=== PATIENT | female | born 1960 | race Caucasian/White ===

== ENCOUNTER 2017-06-17 06:30 | Inpatient (IN) | payer MEDICARE ==
[~2017-06-17 06:30] MED LIST: Acetaminophen 500 MG Tab PO SCH; Famotidine 20 MG/2 ML SDV IVPUSH SCH; Ketorolac 30 MG/ML SDV IVPUSH SCH; Ropivacaine 49.25 ML, Ketorolac 30 MG, EPINEPHrine 0.5 MG, cloNIDine 80 MCG in Sodium C... INJECT ONE; Scopolamine 1.5 MG Transdermal Patch TRDERM SCH; ceFAZolin 2 GM in Premix Bag 1 BAG IV SCH; oxyCODONE ER 20 MG TAB.ER PO SCH
[2017-06-17] MEDS ORDERED: Famotidine 20 MG/2 ML SDV ONE (06:40)
[2017-06-17] MEDS ORDERED: Ketorolac 30 MG/ML SDV ONE ×2 (06:52→07:34)
[2017-06-17] MEDS ORDERED: Scopolamine 1.5 MG Transdermal Patch ONE (06:52)
[2017-06-17] MEDS ORDERED: Acetaminophen 500 MG Tab ONE (06:52)
[2017-06-17] MEDS: Lactated Ringers 1,000 ML IV SCH ×2 (07:18→18:34)
[2017-06-17] MEDS ORDERED: Lidocaine 2% 5 ML SDV ONE (07:21)
[2017-06-17] MEDS ORDERED: Propofol 200 MG/20 ML SDV ONE ×2 (07:22→09:18)
[2017-06-17] MEDS ORDERED: Midazolam 1 MG/ML 2 ML SDV ONE (07:22)
[2017-06-17] MEDS ORDERED: fentaNYL 100 MCG/2 ML SDV ONE ×2 (07:22→08:40)
[2017-06-17] MEDS ORDERED: Ondansetron 4 MG/2 ML SDV ONE (07:25)
[2017-06-17] MEDS ORDERED: ePHEDrine 50 MG/ML SDV ONE ×2 (07:25→07:36)
--- NOTE | 2017-06-17 08:16 | PCM.PREANE ---
Preanesthetic Assessment - Procedure Proposed Procedure: right total knee replacement - Anesthesia/Transfusion/Family Hx Other Type of Anesthesia Reaction Comment: "I have up woke up confused" Family History of Anesthesia Reaction: No Transfusion History: Prior Transfusion Without Reaction Intubation History: Unknown - Review of Systems General: No Symptoms Pulmonary: No Symptoms Cardiovascular: Other (HTN and elevated cholesterol) Gastrointestinal: No Symptoms Neurological: Difficulty Walking (due to knee pain), Other (back pain; epidural meds in past) Other: Reports: Diabetes (new onset, on metformin) - Physical Assessment NPO Status Date: 06/16/17 NPO Status Time: 20:30 O2 Sat by Pulse Oximetry: 95 Respiratory Rate: 16 Vital Signs: Last Vital Signs Temp 97.9 F 06/17/17 06:40 Pulse 98 06/17/17 06:40 Resp 16 06/17/17 06:40 BP 153/86 H 06/17/17 06:40 Pulse Ox 95 06/17/17 06:40 Height: 5 ft 8 in Weight: 190 lb ASA Class: 3 Mental Status: Alert & Oriented x3 Airway Class: Mallampati = 1 Dentition: Reports: Normal Dentition Thyro-Mental Finger Breadths: 3 Mouth Opening Finger Breadths: 3 ROM/Head Extension: Full Lungs: Clear to Auscultation, Normal Respiratory Effort Cardiovascular: Regular Rate, Regular Rhythm, No Murmurs - Lab Values: Laboratory Last Values POC Glucose 96 mg/dL (60-110) 06/17/17 07:18 - Allergies Allergies/Adverse Reactions: Allergies Allergy/AdvReac Type Severity Reaction Status Date / Time celecoxib [From Celebrex] Allergy Muscle Verified 06/17/17 07:57 Aches duloxetine [From Cymbalta] Allergy Muscle Verified 06/17/17 07:57 Aches pumpkin Allergy Nausea and Verified 06/17/17 07:57 Vomiting Sulfa (Sulfonamide Allergy Rash Verified 06/17/17 07:57 Antibiotics) tramadol [From Ultram] Allergy Hyperactivi Verified 06/17/17 07:57 ty bee stings Allergy Anaphylactic Uncoded 06/17/17 07:57 Shock gold Allergy Redness Uncoded 06/17/17 07:57 - Blood Blood Available: Yes Product(s) Available: PRBC - Anesthesia Plan Pre-Op Medication Ordered: Other (per surgeon) - Acknowledgements Anesthesia Type Planned: General Anesthesia, Spinal Pt an Appropriate Candidate for the Planned Anesthesia: Yes Alternatives and Risks of Anesthesia Discussed w Pt/Guardian: Yes Pt/Guardian Understands and Agrees with Anesthesia Plan: Yes PreAnesthesia Questionnaire HEENT History: Reports: Allergic Rhinitis, Other (See Below) Other HEENT History: wears glasses Cardiovascular History: Reports: High Cholesterol, Hypertension Gastrointestinal History: Reports: GERD, Irritable Bowel Syndrome Other Gastrointestinal History: hx gastric ulcer, tested positive for hep C Genitourinary History: Reports: Renal Calculus 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: Musculoskeletal History: Reports: Back Pain, Chronic, Fracture, Osteoarthritis Neurological History: Reports: Concussion Psychiatric History: Reports: Anxiety, Depression Endocrine/Metabolic History: Reports: Diabetes, Type II Hematologic History: Reports: Blood Transfusion(s) - Infectious Disease History Infectious Disease History: Reports: Hepatitis A, Hepatitis C - Past Surgical History Head Surgeries/Procedures: Reports: None GI Surgical History: Reports: Cholecystectomy Female Surgical History: Reports: Hysterectomy Musculoskeletal Surgical History: Reports: Knee Replacement, ORIF Other Musculoskeletal Surgeries/Procedures:: ORIF fx left femur, left TKA - SUBSTANCE USE Smoking Status *Q: Never Smoker Recreational Drug Use History: No - HOME MEDS Home Medications: Home Meds Aspirin [[place] Aspirin] 81 mg PO DAILY 06/14/17 [History] Cetirizine HCl [Zyrtec] 10 mg PO DAILY 06/14/17 [History] ClonazePAM [KlonoPIN] 1 mg PO BID 06/14/17 [History] EPINEPHrine [Epipen] 1 injection SUBCUT ASDIRECTED PRN 06/14/17 [History] Escitalopram Oxalate 20 mg PO DAILY 06/14/17 [History] Ferrous Sulfate [Iron] 325 mg PO ASDIRECTED 06/14/17 [History] Hydrochlorothiazide 12.5 mg PO DAILY 06/14/17 [History] L.acidoph,Paracasei, B.lactis [Probiotic] 1 tab PO DAILY 06/14/17 [History] Lavender Oil [Lavender Fragrance Oil] 1 applic TOP ASDIRECTED 06/14/17 [History] Lisinopril 40 mg PO DAILY 06/14/17 [History] Meloxicam 15 mg PO DAILY 06/14/17 [History] Metoprolol Succinate 50 mg PO ASDIRECTED 06/14/17 [History] Mv-Mn/Folic Acid/Calcium/Vit K [Women's 50 Plus Daily Formula] 1 tab PO DAILY [History] Potassium Chloride 10 meq PO DAILY 06/14/17 [History] Pravastatin Sodium [Pravachol] 40 mg PO BEDTIME 06/14/17 [History] Turmeric/Turmeric Ext/Pepr Ext [Turmeric Complex 500 mg Cap] 1 tab PO BID [History] metFORMIN HCl [Metformin HCl] 500 mg PO BID 06/14/17 [History] - CURRENT (IN HOUSE) MEDS Current Meds: Current Medications Acetaminophen (Tylenol Extra Strength) 1,000 mg PO ONARRIVE ALICIA Last Admin: 06/17/17 07:28 Dose: 1,000 mg Famotidine (Pepcid) 40 mg IVPUSH ONARRIVE ALICIA Last Admin: 06/17/17 07:31 Dose: 40 mg Cefazolin Sodium/Dextrose 2 gm (/ Premix) 50 mls @ 100 mls/hr IV ONCALL ALICIA Lactated Ringer's (Ringers, Lactated) 1,000 mls @ 100 mls/hr IV ASDIRECTED ALICIA Last Admin: 06/17/17 07:18 Dose: 100 mls/hr Ketorolac Tromethamine (Toradol) 30 mg IVPUSH ONARRIVE ALICIA Last Admin: 06/17/17 07:30 Dose: 30 mg Oxycodone HCl (Oxycontin) 20 mg PO ONARRIVE ALICIA Scopolamine (Transderm-Scop) 1.5 mg TRDERM ONARRIVE ALICIA Last Admin: 06/17/17 07:27 Dose: 1.5 mg Tranexamic Acid (Cyklokapron) 4,000 mg IV [facility] Discontinued Medications Acetaminophen (Tylenol Extra Strength) Confirm Administered Dose 1,000 mg .ROUTE .STK-MED ONE Stop: 06/17/17 06:53 Ephedrine Sulfate (Ephedrine Sulfate) Confirm Administered Dose 50 mg .ROUTE .STK-MED ONE Stop: 06/17/17 07:26 Ephedrine Sulfate (Ephedrine Sulfate) Confirm Administered Dose 50 mg .ROUTE .STK-MED ONE Stop: 06/17/17 07:37 Famotidine (Pepcid) Confirm Administered Dose 40 mg .ROUTE .STK-MED ONE Stop: 06/17/17 06:41 Last Admin: 06/17/17 07:41 Dose: Not Given Fentanyl (Sublimaze) Confirm Administered Dose 100 mcg .ROUTE .STK-MED ONE Stop: 06/17/17 07:23 Ropivacaine 49.25 ml/Ketorolac Tromethamine 30 mg/Epinephrine HCl 0.5 mg/ Clonidine HCl 80 mcg/ Sodium Chloride 100 mls @ 50 mls/min INJECT ONETIME ONE Stop: 06/17/17 06:01 Ketorolac Tromethamine (Toradol) Confirm Administered Dose 30 mg .ROUTE .STK- MED ONE Stop: 06/17/17 06:53 Ketorolac Tromethamine (Toradol) Confirm Administered Dose 30 mg .ROUTE .STK- MED ONE Stop: 06/17/17 07:35 Lidocaine (Xylocaine-Mpf 2%) Confirm Administered Dose 10 ml .ROUTE .STK-MED ONE Stop: 06/17/17 07:22 Midazolam HCl (Versed 1 Mg/Ml) Confirm Administered Dose 2 mg .ROUTE .STK-MED ONE Stop: 06/17/17 07:23 Ondansetron HCl (Zofran) Confirm Administered Dose 4 mg .ROUTE .STK-MED ONE Stop: 06/17/17 07:26 Propofol (Diprivan 20 Ml) Confirm Administered Dose 400 mg .ROUTE .STK-MED ONE Stop: 06/17/17 07:23 Scopolamine (Transderm-Scop) Confirm Administered Dose 1.5 mg .ROUTE .STK-MED ONE Stop: 06/17/17 06:53 Tranexamic Acid (Cyklokapron) Confirm Administered Dose 4,000 mg .ROUTE .STK- MED ONE Stop: 06/17/17 07:21
[2017-06-17] MEDS ORDERED: fentaNYL 100 MCG/2 ML SDV IVPUSH PRN (09:05)
[2017-06-17] MEDS ORDERED: HYDROmorphone 2 MG/ML Syringe IVPUSH ONE (09:05)
[2017-06-17] MEDS ORDERED: Bisacodyl 10 MG Supp RECTAL PRN (10:07)
[2017-06-17] MEDS ORDERED: Aluminum Hydroxide/Magnesium Hydroxide/Simethicone Susp 30 ML Cup PO PRN (10:07)
[2017-06-17] MEDS ORDERED: Ondansetron 4 MG/2 ML SDV IV PRN (10:07)
[2017-06-17] MEDS ORDERED: diphenhydrAMINE 25 MG Cap PO PRN (10:07)
--- NOTE | 2017-06-17 10:10 | PCM.OPNOTE ---
- General Post-Op/Procedure Note Date of Surgery/Procedure: 06/17/17 Operative Procedure(s): R TKA Post-Op Diagnosis: DJD R knee Anesthesia Technique: General LMA, Spinal Primary Surgeon: Lenka Vargas Patient Account Representative: Luna Wilkerson in mLs: 50 Condition: Good Free Text/Narrative:: tt=54 min #[id number] Intake & Output 06/16/17 06/17/17 06/17/17 22:59 06:59 14:59 Output Total 350 Balance -350
[2017-06-17] MEDS ORDERED: Acetaminophen 500 MG Tab PO SCH (10:15)
--- NOTE | 2017-06-17 10:41 | OR ---
SURGEON: Lenka Vargas MD DATE OF PROCEDURE: 06/17/2017 PREOPERATIVE DIAGNOSIS: Degenerative joint disease, right knee, tricompartmental. POSTOPERATIVE DIAGNOSIS: Degenerative joint disease, right knee, tricompartmental. PROCEDURES: Right total knee arthroplasty using patient-specific instrumentation. BOILER/CHILLER OPERATOR: Luna Wilkerson PA-C. ANESTHESIA: Spinal and general. ESTIMATED BLOOD LOSS: 50 mL. TOURNIQUET TIME: 54 minutes. COMPLICATIONS: None. DVT PROPHYLAXIS: PAS boot and VÍCTOR hose to the nonoperative leg. IMPLANTS USED: Maggie NexGen femoral component size E (LPS), tibial component size 5, 14 mm all- polyethylene articular surface, and 35 mm all-polyethylene patella. FINDINGS: Showed severe tricompartmental degenerative changes, which were most severe along the medial compartment. She had complete eburnation of the bone along the medial femoral condyle as well as the medial tibial plateau. Osteophyte formation was noted in all 3 compartments. No significant synovitis was noted. BRIEF HISTORY: Teresita is a 56-year-old female, who has had complaint of progressive right knee pain. She had previously undergone a left total knee arthroplasty at an outlying facility, which was complicated by a periprosthetic fracture approximately 2 weeks after her surgery. She went on to heal the fracture well. She has continued to have pain in her right knee. She had failed conservative treatment. Due to her lack of response to conservative treatment, I did recommend surgical intervention. The risks and goals of procedure were discussed with the patient and were documented preoperatively. She agreed to proceed. DESCRIPTION OF PROCEDURE: The patient was properly identified and brought to the operating room. The patient was transferred from the operating room cart and placed on the operating room table. Spinal anesthesia was administered by the anesthesia team. After adequate sedation was achieved, a well-padded tourniquet was applied to the lower extremity. A Bennett catheter was then placed. The lower extremity was then prepped in standard fashion using ChloraPrep solution. It was then sterilely draped. A time-out was performed to ensure correct site and procedure. Preoperative antibiotics were given along with one gram of tranexamic acid IV. The surgical site had been marked preoperatively. An Esmarch was used to exsanguinate the lower extremity and the tourniquet was inflated. An incision was made centered over the anterior aspect of the knee. The subcutaneous tissues were dissected down to the level of the fascia. A medial parapatellar approach was made. A partial medial release was also performed. The knee was then brought into extension and a portion of the infrapatellar fat pad was excised. The knee was then brought into flexion. The femoral patient specific cutting block was placed. This fit anatomically. The pins were then placed. The 0 degree distal femoral cutting guide was placed over the distal femur pins. The femur was then resected using an oscillating saw. The pins were then removed and were placed into the previously placed distal drill holes in the femoral condyles. Both Eagle's and the epicondylar axis were marked with electric cautery. The cutting block was then placed. This was pinned into position in a slightly lateral and externally rotated position. This was then secured. The resection guide was used to check to make sure that the anterior femoral cortex would not be notched. The anterior condylar cut was then made. No notching of the femur was noted. This was followed by the posterior condylar, posterior chamfer, and anterior chamfer cuts. The narrow reciprocating saw was then used to cut the base of the trochlear recess and score the edges. The finishing guide was then removed and the trochlear recess cuts and remaining bone cuts were finished. The notch cutting block was then placed into position and the notch cut was made without difficulty using the reciprocating saw. This was then removed. The notch block that had been cut along with a portion of the cruciate ligaments were also resected. We then turned our attention to the tibia. The posterior cruciate ligament retractor was used to bring the tibial surface anteriorly. The patient specific tibial block was then placed. This fit anatomically. It was pinned into position. The block was then removed. The 0 degree proximal tibia cutting guide was then placed over the guide pin. This was secured with a Michela clamp. The resection depth was checked using the resection guide. A proximal tibia cut was then made using an oscillating saw. Care was taken to protect the patellar tendon. The proximal tibia bone was then removed. The remainder of the medial and lateral meniscus were also excised. Care was taken to protect the popliteus tendon. The proximal tibia was then sized. The remainder of the osteophytes along the proximal tibia were also resected. The distal femur was elevated to expose the posterior knee. The posterior capsule was stripped off the distal femur using a curved osteotome. The posterior osteophytes were also excised. The posterior capsule, along with the medial and lateral gutters, were then injected with the standard, preoperatively prepared, mixture consisting of clonidine, epinephrine, ropivacaine, Toradol, and saline, unless any allergies were noted preoperatively. The femoral trial was then placed. This was followed by the tibial component with a size 10 trial polyethylene. The knee was brought into full extension. Stability to varus and valgus stress was checked in extension and in flexion. There appeared to be good range of motion and stability. The knee was then brought into full extension. The patella was everted. The patella was resected to a thickness of 15 millimeters. It was then sized. Once the appropriate size was determined, the patella was prepared by placing the patella button in a slightly superior and medial position. The patella button trial was then placed and the knee was again taken through a range of motion. There was excellent patellar tracking using the no-touch technique. Alignment was checked with a drop pietro. The trial components were then removed. The knee was brought into full flexion and the tibia was prepared in a standard fashion placing the tibial plate in slight external rotation with the center of the prosthesis lined up with the medial aspect of the tibial tubercle. The wound was then copiously irrigated with Pulsavac solution to remove any bony debris. The bone ends were then suctioned dry. Cement was prepared in the usual fashion on the back table. The cement was then placed onto the proximal tibia and the tibial component was placed without difficulty. This was malleted into position. Excess cement was cleared. The femoral component was cemented in a similar manner. A trial polyethylene was then placed and the knee was brought into full extension. An axial load was applied. The patella button was then cemented into place and a patella clamp was placed to hold pressure. The cement was allowed to cure. The wound was again copiously irrigated with saline solution using a Pulsavac coverstitch binder. Following this 1 g of tranexamic acid was applied to the wound topically. After the cement had adequately hardened, the patella clamp was released. The knee was again taken through a range of motion. It was determined at this time the correct thickness of polyethylene. The trial polyethylene insert was then removed. The knee was brought into flexion and the tibial tray was suctioned dry. Any excess cement was cleared from the tibial and femoral components. The knee was then brought into approximately 45 degrees of flexion. The tourniquet was deflated. No excess bleeding was noted from the posterior aspect of the knee. An additional gram of tranexamic acid was given IV. The previously determined sized polyethylene insert was then placed and locked into position without difficulty. The knee was again taken through a range of motion with no change in stability, either in flexion or extension. The fascia layer was closed with No. 1 Vicryl. The subcutaneous tissue was closed with 2-0 Vicryl and the skin was closed with a shade. Xeroform gauze was placed over the wound and a bulky dressing was applied. The patient was then awakened from the anesthetic and transferred back to the operating cart. The patient was brought to recovery room in stable condition. All needle and sponge counts were correct. LEVON HARRIS /[id number]
--- NOTE | 2017-06-17 10:41 | PCM.POSTAN ---
POST ANESTHESIA ASSESSMENT - MENTAL STATUS Mental Status: Alert, Oriented - RESPIRATORY Respiratory Status: Respiratory Rate WNL, Airway Patent, O2 Saturation Stable - CARDIOVASCULAR CV Status: Pulse Rate WNL, Blood Pressure Stable - GASTROINTESTINAL GI Status: No Symptoms - PAIN Pain Score: 0 (Spinal effect still present) - POST OP HYDRATION Hydration Status: Adequate & Stable
[2017-06-17] MEDS: Acetaminophen 500 MG Tab PO SCH ×2 (11:31→17:01)
[2017-06-17] MEDS: HYDROmorphone 2 MG/ML Syringe IVPUSH PRN ×3 (12:29→22:06)
--- NOTE | 2017-06-17 13:28 | CR ---
EXAMINATION: Right knee HISTORY: Arthroplasty COMPARISON: 05/20/2017 TECHNIQUE: 2 views FINDINGS/IMPRESSION: Total knee hardware is demonstrated in good position and alignment. Operative so ft tissue changes are noted.
[2017-06-17] MEDS: oxyCODONE 5 MG Tab PO PRN ×2 (14:24→23:35)
[2017-06-17] MEDS: ceFAZolin 2 GM in Premix Bag 1 BAG IV SCH ×2 (16:58→22:15)
--- NOTE | 2017-06-17 18:05 | PCM.CONS ---
H&P History of Present Illness - General Date of Service: 06/17/17 Admit Problem/Dx: Admission Diagnosis/Problem Admission Diagnosis/Problem Replacement of total knee joint - History of Present Illness Initial Comments - Free Text/Narative: DR Hussain Vargas kindly requested that I consult on the care of this woman who underwent total knee replacement today. She has a history of HTN and DM. She does not take insulin. She has no recent chest pain or dyspnea. - Related Data Allergies/Adverse Reactions: Allergies Allergy/AdvReac Type Severity Reaction Status Date / Time celecoxib [From Celebrex] Allergy Muscle Verified 06/17/17 07:57 Aches duloxetine [From Cymbalta] Allergy Muscle Verified 06/17/17 07:57 Aches pumpkin Allergy Nausea and Verified 06/17/17 07:57 Vomiting Sulfa (Sulfonamide Allergy Rash Verified 06/17/17 07:57 Antibiotics) tramadol [From Ultram] Allergy Hyperactivi Verified 06/17/17 07:57 ty bee stings Allergy Anaphylactic Uncoded 06/17/17 07:57 Shock gold Allergy Redness Uncoded 06/17/17 07:57 Home Medications: Home Meds Aspirin [[place] Aspirin] 81 mg PO DAILY 06/14/17 [History] Cetirizine HCl [Zyrtec] 10 mg PO DAILY 06/14/17 [History] ClonazePAM [KlonoPIN] 1 mg PO BID 06/14/17 [History] EPINEPHrine [Epipen] 1 injection SUBCUT ASDIRECTED PRN 06/14/17 [History] Escitalopram Oxalate 20 mg PO DAILY 06/14/17 [History] Ferrous Sulfate [Iron] 325 mg PO ASDIRECTED 06/14/17 [History] Hydrochlorothiazide 12.5 mg PO DAILY 06/14/17 [History] L.acidoph,Paracasei, B.lactis [Probiotic] 1 tab PO DAILY 06/14/17 [History] Lavender Oil [Lavender Fragrance Oil] 1 applic TOP ASDIRECTED 06/14/17 [History] Lisinopril 40 mg PO DAILY 06/14/17 [History] Meloxicam 15 mg PO DAILY 06/14/17 [History] Metoprolol Succinate 50 mg PO ASDIRECTED 06/14/17 [History] Mv-Mn/Folic Acid/Calcium/Vit K [Women's 50 Plus Daily Formula] 1 tab PO DAILY [History] Potassium Chloride 10 meq PO DAILY 06/14/17 [History] Pravastatin Sodium [Pravachol] 40 mg PO BEDTIME 06/14/17 [History] Turmeric/Turmeric Ext/Pepr Ext [Turmeric Complex 500 mg Cap] 1 tab PO BID [History] metFORMIN HCl [Metformin HCl] 500 mg PO BID 06/14/17 [History] Past Medical History HEENT History: Reports: Allergic Rhinitis, Other (See Below) Other HEENT History: wears glasses Cardiovascular History: Reports: High Cholesterol, Hypertension. 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 Denies: CVA Psychiatric History: Reports: Anxiety, Depression Endocrine/Metabolic History: Reports: Diabetes, Type II Hematologic History: Reports: Blood Transfusion(s) - Infectious Disease History Infectious Disease History: Reports: Hepatitis A, Hepatitis C - Past Surgical History Head Surgeries/Procedures: Reports: None GI Surgical History: Reports: Cholecystectomy Female Surgical History: Reports: Hysterectomy Musculoskeletal Surgical History: Reports: Knee Replacement, ORIF Other Musculoskeletal Surgeries/Procedures:: ORIF fx left femur, left TKA Social & Family History - Tobacco Use Smoking Status *Q: Never Smoker - Caffeine Use Caffeine Use: Reports: Soda Caffeine Use Comment: Used rarely. - Recreational Drug Use Recreational Drug Use: No H&P Review of Systems - Review of Systems: Review Of Systems: See Below General: Denies: Fever HEENT: Denies: Sore Throat Pulmonary: Denies: Shortness of Breath, Cough, Sputum Cardiovascular: Denies: Chest Pain Gastrointestinal: Denies: Abdominal Pain, Black Stool, Bloody Stool, Hematemesis , Hematochezia, Melena, Nausea, Stool Incontinence Genitourinary: Denies: Dysuria, Frequency, Hematuria Skin: Denies: Cyanosis Exam - Exam Exam: See Below - Vital Signs Vital Signs: Last Vital Signs Temp 98.2 F 06/17/17 14:04 Pulse 83 09/18/17 15:05 Resp 16 06/17/17 11:41 BP 112/56 L 06/17/17 15:05 Pulse Ox 92 L 06/17/17 15:05 Weight: 86.183 kg - Exam General: Alert, Oriented, Cooperative HEENT: EOMI Neck: Supple, Trachea Midline Lungs: Clear to Auscultation, Normal Respiratory Effort Cardiovascular: Regular Rate, Regular Rhythm GI/Abdominal Exam: Non-Tender Neurological: Cranial Nerves Intact, Normal Speech - Patient Data Lab Results Last 24 hrs: Laboratory Results - last 24 hr 06/17/17 06/17/17 06/17/17 Range/Units 07:18 07:18 16:57 POC Glucose 96 132 H (60-110) mg/dL Blood Type O NEGATIVE Antibody Screen NEGATIVE Consult PN Assessment/Plan Procedures: Procedures CHEST X-RAY 2VW FRONTAL&LATL (06/04/17) COMPLETE CBC W/AUTO DIFF WBC (06/04/17) COMPREHEN METABOLIC PANEL (05/15/17) GLYCOSYLATED HEMOGLOBIN TEST (06/04/17) LIPID PANEL (05/15/17) METABOLIC PANEL TOTAL CA (06/04/17) MRI JNT OF LWR EXTRE W/O DYE (05/20/17) PROTHROMBIN TIME (06/04/17) ROUTINE VENIPUNCTURE (06/04/17) URINALYSIS AUTO W/SCOPE (06/04/17) X-RAY EXAM KNEE 4 OR MORE (05/07/17) (1) Total knee replacement status SNOMED Code(s): 1922302466989, 614631559, 4553312255749 Code(s): Z96.659 - PRESENCE OF UNSPECIFIED ARTIFICIAL KNEE JOINT Current Visit: Yes (2) History of chronic hypertension SNOMED Code(s): 804717470 Code(s): Z86.79 - PERSONAL HISTORY OF OTHER DISEASES OF THE CIRCULATORY SYSTEM Current Visit: Yes (3) Diabetes mellitus SNOMED Code(s): 11683260 Code(s): E11.9 - TYPE 2 DIABETES MELLITUS WITHOUT COMPLICATIONS Current Visit: Yes Problem List Initiated/Reviewed/Updated: Yes My Orders Last 24 Hours: My Active Orders 06/17/17 21:00 Pravastatin [Pravachol] 40 mg PO BEDTIME 06/18/17 09:00 Escitalopram Oxalate 20 mg PO DAILY Plan: will follow patient monitor blood pressure and glucose levels hold metformin for now hold antihypertensives for now but likely restart them tomorrow. Damian Gomez MD
[2017-06-17] MEDS: oxyCODONE ER 20 MG TAB.ER PO SCH (20:51)
[2017-06-17] MEDS ORDERED: Pravastatin 40 MG Tab PO SCH (21:00)
[2017-06-17] MEDS: Docusate Sodium 100 MG Cap PO SCH (21:06)
[2017-06-18] MEDS: HYDROmorphone 2 MG/ML Syringe IVPUSH PRN (01:20)
[2017-06-18] MEDS: oxyCODONE 5 MG Tab PO PRN ×3 (03:44→16:21)
[2017-06-18] MEDS: Lactated Ringers 1,000 ML IV SCH (04:49)
[2017-06-18 05:51] LABS: CHLORIDE,CL 102 mmol/L (98-110); SODIUM,NA 136 mmol/L (136-146)
[2017-06-18] MEDS: Acetaminophen 500 MG Tab PO SCH ×3 (06:00→11:43)
--- NOTE | 2017-06-18 08:13 | PCM48HPAN ---
Post Anesthesia Note - EVALUATION WITHIN 48HRS OF ANESTHETIC Vital Signs in Normal Range: Yes Patient Participated in Evaluation: Yes Respiratory Function Stable: Yes Airway Patent: Yes Cardiovascular Function Stable: Yes Hydration Status Stable: Yes Pain Control Satisfactory: Yes Nausea and Vomiting Control Satisfactory: Yes Mental Status Recovered: Yes
[2017-06-18] MEDS ORDERED: Sodium Chloride 0.9% 10 ML Syringe FLUSH PRN (08:49)
[2017-06-18] MEDS ORDERED: Sodium Chloride 0.9% 2.5 ML Syringe FLUSH PRN (08:49)
--- NOTE | 2017-06-18 08:52 | PCM.SURGPN ---
<Luna Wilkerson - Last Filed: 06/18/17 08:50> - General Info Date of Service: 06/18/17 Date of Surgery/Procedure: 06/17/17 POD#: 1 Functional Status: Reports: Pain Controlled, Tolerating Diet, Ambulating - Review of Systems General: Reports: No Symptoms Pulmonary: Reports: No Symptoms Cardiovascular: Reports: No Symptoms Gastrointestinal: Reports: No Symptoms Genitourinary: Reports: No Symptoms Musculoskeletal: Reports: Leg Pain, Joint Pain, Joint Swelling Neurological: Reports: No Symptoms Psychiatric: Reports: No Symptoms - Patient Data Vitals - Most Recent: Last Vital Signs Temp 36.4 C 06/18/17 07:53 Pulse 90 06/18/17 07:53 Resp 18 06/18/17 07:53 BP 125/63 06/18/17 07:53 Pulse Ox 97 06/18/17 07:53 Weight - Most Recent: 86.183 kg I&O - Last 24 Hours: Intake & Output 06/17/17 06/18/17 06/18/17 22:59 06:59 14:59 Intake Total 1521 1350 Output Total 275 750 Balance 1246 600 Lab Results Last 24 Hrs: Laboratory Results - last 24 hr 06/17/17 06/17/17 06/18/17 Range/Units 16:57 21:22 05:00 WBC 8.52 (4.0-11.0) K/uL RBC 3.29 L (4.30-5.90) M/uL Hgb 9.7 L (12.0-16.0) g/dL Hct 29.5 L (36.0-46.0) % MCV 89.7 (80.0-98.0) fL MCH 29.5 (27.0-32.0) pg MCHC 32.9 (31.0-37.0) g/dL RDW Std Deviation 45.8 (28.0-62.0) fl RDW Coeff of Bobbi 14 (11.0-15.0) % Plt Count 236 (150-400) K/uL MPV 9.00 (7.40-12.00) fL Neut % (Auto) 71.7 (48.0-80.0) % Lymph % (Auto) 15.4 L (16.0-40.0) % [place] % (Auto) 10.2 (0.0-15.0) % Eos % (Auto) 2.5 (0.0-7.0) % Baso % (Auto) 0.2 (0.0-1.5) % Neut # (Auto) 6.1 H (1.4-5.7) K/uL Lymph # (Auto) 1.3 (0.6-2.4) K/uL [place] # (Auto) 0.9 H (0.0-0.8) K/uL Eos # (Auto) 0.2 (0.0-0.7) K/uL Baso # (Auto) 0.0 (0.0-0.1) K/uL Nucleated RBC % 0.0 /100WBC Nucleated RBCs # 0 K/uL Sodium (136-146) mmol/L Potassium (3.5-5.1) mmol/L Chloride (98-110) mmol/L Carbon Dioxide (21-31) mmol/L BUN (6.0-23.0) mg/dL Creatinine (0.6-1.5) mg/dL Est Cr Clr Drug Dosing mL/min Estimated GFR (MDRD) ml/min Glucose (60-110) mg/dL POC Glucose 132 H 131 H (60-110) mg/dL Calcium (8.8-10.8) mg/dL Magnesium (1.5-2.3) mEq/L 06/18/17 06/18/17 Range/Units 05:00 06:13 WBC (4.0-11.0) K/uL RBC (4.30-5.90) M/uL Hgb (12.0-16.0) g/dL Hct (36.0-46.0) % MCV (80.0-98.0) fL MCH (27.0-32.0) pg MCHC (31.0-37.0) g/dL RDW Std Deviation (28.0-62.0) fl RDW Coeff of Bobbi (11.0-15.0) % Plt Count (150-400) K/uL MPV (7.40-12.00) fL Neut % (Auto) (48.0-80.0) % Lymph % (Auto) (16.0-40.0) % [place] % (Auto) (0.0-15.0) % Eos % (Auto) (0.0-7.0) % Baso % (Auto) (0.0-1.5) % Neut # (Auto) (1.4-5.7) K/uL Lymph # (Auto) (0.6-2.4) K/uL [place] # (Auto) (0.0-0.8) K/uL Eos # (Auto) (0.0-0.7) K/uL Baso # (Auto) (0.0-0.1) K/uL Nucleated RBC % /100WBC Nucleated RBCs # K/uL Sodium 136 (136-146) mmol/L Potassium 3.6 (3.5-5.1) mmol/L Chloride 102 (98-110) mmol/L Carbon Dioxide 24 (21-31) mmol/L BUN 14 (6.0-23.0) mg/dL Creatinine 0.7 (0.6-1.5) mg/dL Est Cr Clr Drug Dosing 89.45 mL/min Estimated GFR (MDRD) > 60.0 ml/min Glucose 131 H (60-110) mg/dL POC Glucose 119 H (60-110) mg/dL Calcium 8.7 L (8.8-10.8) mg/dL Magnesium 1.0 L (1.5-2.3) mEq/L Med Orders - Current: Current Medications Acetaminophen (Tylenol Extra Strength) 1,000 mg PO ONARRIVE [facility] Last Admin: 06/17/17 07:28 Dose: 1,000 mg Acetaminophen (Tylenol Extra Strength) 1,000 mg PO Q6H [facility] Last Admin: 06/18/17 06:00 Dose: 1,000 mg Al Hydroxide/Mg Hydroxide (Mag-Al Plus) 30 ml PO Q4H PRN PRN Reason: indigestion Aspirin (Aspirin) 325 mg PO BID [facility] Bisacodyl (Dulcolax) 10 mg RECTAL DAILY PRN PRN Reason: Constipation Diphenhydramine HCl (Benadryl) 25 - 50 mg PO Q6H PRN PRN Reason: Itching Docusate Sodium (Colace) 100 mg PO BID [facility] Last Admin: 06/17/17 21:06 Dose: Not Given Escitalopram Oxalate (Lexapro) 20 mg PO DAILY [facility] Famotidine (Pepcid) 40 mg IVPUSH ONARRIVE [facility] Last Admin: 06/17/17 07:31 Dose: 40 mg Fentanyl (Sublimaze) 50 mcg IVPUSH Q5M PRN PRN Reason: Pain (severe 7-10) Stop: 06/18/17 09:05 Hydromorphone HCl (Dilaudid) 0.5 - 1 mg IVPUSH Q3H PRN PRN Reason: Pain Last Admin: 06/18/17 01:20 Dose: 1 mg Cefazolin Sodium/Dextrose 2 gm (/ Premix) 50 mls @ 100 mls/hr IV ONCALL [facility] Ketorolac Tromethamine (Toradol) 30 mg IVPUSH ONARRIVE [facility] Last Admin: 06/17/17 07:30 Dose: 30 mg Ondansetron HCl (Zofran) 4 mg IV Q6HR PRN PRN Reason: NAUSEA/VOMITING Last Admin: 06/17/17 21:06 Dose: 4 mg Oxycodone HCl (Oxycontin) 20 mg PO ONARRIVE [facility] Oxycodone HCl (Oxycodone) 5 - 10 mg PO Q4H PRN PRN Reason: Pain Last Admin: 06/18/17 03:44 Dose: 10 mg Oxycodone HCl (Oxycontin) 20 mg PO Q12HR [facility] Last Admin: 06/17/17 20:51 Dose: 20 mg Pravastatin Sodium (Pravachol) 40 mg PO BEDTIME [facility] Last Admin: 06/17/17 20:51 Dose: 40 mg Scopolamine (Transderm-Scop) 1.5 mg TRDERM ONARRIVE [facility] Last Admin: 06/17/17 07:27 Dose: 1.5 mg Sodium Chloride (Saline Flush) 10 ml FLUSH ASDIRECTED PRN PRN Reason: Keep Vein Open Sodium Chloride (Saline Flush) 2.5 ml FLUSH ASDIRECTED PRN PRN Reason: Keep Vein Open Tranexamic Acid (Cyklokapron) 4,000 mg IV SEECOMMENT [facility] Discontinued Medications Acetaminophen (Tylenol Extra Strength) Confirm Administered Dose 1,000 mg .ROUTE .STK-MED ONE Stop: 06/17/17 06:53 Acetaminophen (Tylenol Extra Strength) 1,000 mg PO Q6H [facility] Last Admin: 06/17/17 11:21 Dose: Not Given Ephedrine Sulfate (Ephedrine Sulfate) Confirm Administered Dose 50 mg .ROUTE .STK-MED ONE Stop: 06/17/17 07:26 Ephedrine Sulfate (Ephedrine Sulfate) Confirm Administered Dose 50 mg .ROUTE .STK-MED ONE Stop: 06/17/17 07:37 Famotidine (Pepcid) Confirm Administered Dose 40 mg .ROUTE .STK-MED ONE Stop: 06/17/17 06:41 Last Admin: 06/17/17 07:41 Dose: Not Given Fentanyl (Sublimaze) Confirm Administered Dose 100 mcg .ROUTE .STK-MED ONE Stop: 06/17/17 07:23 Fentanyl (Sublimaze) Confirm Administered Dose 100 mcg .ROUTE .STK-MED ONE Stop: 06/17/17 08:41 Hydromorphone HCl (Dilaudid) 0 mg IVPUSH ONETIME ONE Stop: 06/17/17 09:06 Last Admin: 06/17/17 11:22 Dose: Not Given Ropivacaine 49.25 ml/Ketorolac Tromethamine 30 mg/Epinephrine HCl 0.5 mg/ Clonidine HCl 80 mcg/ Sodium Chloride 100 mls @ 50 mls/min INJECT ONETIME ONE Stop: 06/17/17 06:01 Last Admin: 06/17/17 11:21 Dose: Not Given Lactated Ringer's (Ringers, Lactated) 1,000 mls @ 100 mls/hr IV ASDIRECTED [facility] Last Admin: 06/18/17 04:49 Dose: 100 mls/hr Cefazolin Sodium/Dextrose 2 gm (/ Premix) 50 mls @ 100 mls/hr IV Q8HR [facility] Stop: 06/17/17 22:29 Last Admin: 06/17/17 22:15 Dose: 100 mls/hr Ketorolac Tromethamine (Toradol) Confirm Administered Dose 30 mg .ROUTE .STK- MED ONE Stop: 06/17/17 06:53 Ketorolac Tromethamine (Toradol) Confirm Administered Dose 30 mg .ROUTE .STK- MED ONE Stop: 06/17/17 07:35 Lidocaine (Xylocaine-Mpf 2%) Confirm Administered Dose 10 ml .ROUTE .STK-MED ONE Stop: 06/17/17 07:22 Midazolam HCl (Versed 1 Mg/Ml) Confirm Administered Dose 2 mg .ROUTE .STK-MED ONE Stop: 06/17/17 07:23 Ondansetron HCl (Zofran) Confirm Administered Dose 4 mg .ROUTE .STK-MED ONE Stop: 06/17/17 07:26 Propofol (Diprivan 20 Ml) Confirm Administered Dose 400 mg .ROUTE .STK-MED ONE Stop: 06/17/17 07:23 Propofol (Diprivan 20 Ml) Confirm Administered Dose 200 mg .ROUTE .STK-MED ONE Stop: 06/17/17 09:19 Scopolamine (Transderm-Scop) Confirm Administered Dose 1.5 mg .ROUTE .STK-MED ONE Stop: 06/17/17 06:53 Tranexamic Acid (Cyklokapron) Confirm Administered Dose 4,000 mg .ROUTE .STK- MED ONE Stop: 06/17/17 07:21 - Exam Wound/Incisions: Dressing Dry and Intact General: Alert, Oriented HEENT: Pupils Equal, Pupils Reactive Neck: Trachea Midline Lungs: Normal Respiratory Effort Cardiovascular: Regular Rate Extremities: Other (Right anterior tibialis, extensor hallucis longus and gastrocnemius strength +5/5 bilaterally. Sensation intact. Dorsalis pedis and posterior tibial pulses +2 bilaterally. ) Neurological: No New Focal Deficit Psy/Mental Status: Alert, Normal Affect, Normal Mood - Problem List Review Problem List Initiated/Reviewed/Updated: Yes - My Orders Last 24 Hours: Active Orders 24 hr Category Date Time Status Patient Status [ADT] Routine ADT 06/17/17 10:05 Active Activity as Tolerated [RC] .Routine Care 06/17/17 10:04 Active Intake and Output [RC] Q12H Care 06/17/17 10:04 Active Neurovascular Check [RC] Q2HR Care 06/17/17 10:04 Active Notify Provider Consults [RC] ASDIRECTED Care 06/17/17 10:09 Active Notify Provider Vital Signs [RC] ASDIRECTED Care 06/17/17 10:04 Active RT Incentive Spirometry [RC] ASDIRECTED Care 06/17/17 10:04 Active Remove Bennett Catheter [Urinary Catheter Removal] [RC] Care 06/18/17 08:49 Ordered Per Unit Routine Vital Signs [RC] Q4H Care 06/17/17 10:04 Active Consult to Physician [CONS] Routine Cons 06/17/17 10:04 Active PT Evaluation and Treatment [CONS] Routine Cons 06/17/17 10:04 Active HEMOGLOBIN/HEMATOCRIT,HH [HEME] DAILY Lab 06/19/17 07:00 Ordered HEMOGLOBIN/HEMATOCRIT,HH [HEME] DAILY Lab 06/20/17 07:00 Ordered Acetaminophen [Tylenol Extra Strength] Med 06/17/17 12:00 Active 1,000 mg PO Q6H Alum Hydrox/Mag Hydrox/Simeth [Mag-Al Plus] Med 06/17/17 10:07 Active 30 ml PO Q4H PRN Aspirin Med 06/18/17 09:00 Active 325 mg PO BID Bisacodyl [Dulcolax] Med 06/17/17 10:07 Active 10 mg RECTAL DAILY PRN Docusate Sodium [Colace] Med 06/17/17 21:00 Active 100 mg PO BID Escitalopram [Lexapro] Med 06/18/17 09:00 Active 20 mg PO DAILY HYDROmorphone [Dilaudid] Med 06/17/17 10:07 Active 0.5 - 1 mg IVPUSH Q3H PRN Ondansetron [Zofran] Med 06/17/17 10:07 Active 4 mg IV Q6HR PRN Pravastatin [Pravachol] Med 06/17/17 21:00 Active 40 mg PO BEDTIME Sodium Chloride 0.9% [Saline Flush] Med 06/18/17 08:49 Ordered 10 ml FLUSH ASDIRECTED PRN Sodium Chloride 0.9% [Saline Flush] Med 06/18/17 08:49 Ordered 2.5 ml FLUSH ASDIRECTED PRN diphenhydrAMINE [Benadryl] Med 06/17/17 10:07 Active 25 - 50 mg PO Q6H PRN fentaNYL [Sublimaze] Med 06/17/17 09:05 Active 50 mcg IVPUSH Q5M PRN oxyCODONE Med 06/17/17 10:07 Active 5 - 10 mg PO Q4H PRN oxyCODONE ER [OxyCONTIN] Med 06/17/17 21:00 Active 20 mg PO Q12HR Convert IV to Saline Lock [OM.PC] Routine Oth 06/18/17 08:49 Ordered Ice Therapy [OM.PC] Routine Oth 06/17/17 10:04 Ordered Medication Orders Acetaminophen (Tylenol Extra Strength) 1,000 mg PO ONARRIVE [facility] Last Admin: 06/17/17 07:28 Dose: 1,000 mg Acetaminophen (Tylenol Extra Strength) 1,000 mg PO Q6H [facility] Last Admin: 06/18/17 06:00 Dose: 1,000 mg Admin: 06/18/17 00:00 Dose: 1,000 mg Admin: 06/17/17 17:01 Dose: 1,000 mg Admin: 06/17/17 11:31 Dose: 1,000 mg Al Hydroxide/Mg Hydroxide (Mag-Al Plus) 30 ml PO Q4H PRN PRN Reason: indigestion Aspirin (Aspirin) 325 mg PO BID [facility] Bisacodyl (Dulcolax) 10 mg RECTAL DAILY PRN PRN Reason: Constipation Diphenhydramine HCl (Benadryl) 25 - 50 mg PO Q6H PRN PRN Reason: Itching Docusate Sodium (Colace) 100 mg PO BID [facility] Last Admin: 06/17/17 21:06 Dose: Not Given Escitalopram Oxalate (Lexapro) 20 mg PO DAILY [facility] Famotidine (Pepcid) 40 mg IVPUSH ONARRIVE [facility] Last Admin: 06/17/17 07:31 Dose: 40 mg Fentanyl (Sublimaze) 50 mcg IVPUSH Q5M PRN PRN Reason: Pain (severe 7-10) Stop: 06/18/17 09:05 Hydromorphone HCl (Dilaudid) 0.5 - 1 mg IVPUSH Q3H PRN PRN Reason: Pain Last Admin: 06/18/17 01:20 Dose: 1 mg Admin: 06/17/17 22:06 Dose: 1 mg Admin: 06/17/17 18:27 Dose: 1 mg Admin: 06/17/17 12:29 Dose: 1 mg Cefazolin Sodium/Dextrose 2 gm (/ Premix) 50 mls @ 100 mls/hr IV ONCALL [facility] Ketorolac Tromethamine (Toradol) 30 mg IVPUSH ONARRIVE [facility] Last Admin: 06/17/17 07:30 Dose: 30 mg Ondansetron HCl (Zofran) 4 mg IV Q6HR PRN PRN Reason: NAUSEA/VOMITING Last Admin: 06/17/17 21:06 Dose: 4 mg Oxycodone HCl (Oxycontin) 20 mg PO ONARRIVE [facility] Oxycodone HCl (Oxycodone) 5 - 10 mg PO Q4H PRN PRN Reason: Pain Last Admin: 06/18/17 03:44 Dose: 10 mg Admin: 06/17/17 23:35 Dose: 10 mg Admin: 06/17/17 14:24 Dose: 10 mg Oxycodone HCl (Oxycontin) 20 mg PO Q12HR [facility] Last Admin: 06/17/17 20:51 Dose: 20 mg Pravastatin Sodium (Pravachol) 40 mg PO BEDTIME [facility] Last Admin: 06/17/17 20:51 Dose: 40 mg Scopolamine (Transderm-Scop) 1.5 mg TRDERM ONARRIVE [facility] Last Admin: 06/17/17 07:27 Dose: 1.5 mg Sodium Chloride (Saline Flush) 10 ml FLUSH ASDIRECTED PRN PRN Reason: Keep Vein Open Sodium Chloride (Saline Flush) 2.5 ml FLUSH ASDIRECTED PRN PRN Reason: Keep Vein Open Tranexamic Acid (Cyklokapron) 4,000 mg IV SEECOMMENT [facility] - Assessment Assessment (Free Text/Narrative):: Patient up to chair this AM. Tolerating diet. Pain well controlled. VSS. Hgb 9.7. UO 1375 mL. No complaints this AM. - Plan Plan (Free Text/Narrative):: Continue PT. Continue pain management. Encourage PO fluid intake. Start Aspirin 325 mg PO BID for DVT prophylaxis. Possible D/C home this afternoon if comfortable with PT. <Lenka Vargas R - Last Filed: 06/18/17 17:49> - Patient Data Vitals - Most Recent: Last Vital Signs Temp 98.1 F 06/18/17 15:59 Pulse 116 H 06/18/17 15:59 Resp 22 H 06/18/17 15:59 BP 162/73 H 06/18/17 11:00 Pulse Ox 92 L 06/18/17 15:59 I&O - Last 24 Hours: Intake & Output 06/18/17 06/18/17 06/18/17 06:59 14:59 22:59 Intake Total 1350 1100 Output Total 750 500 Balance 600 600 Lab Results Last 24 Hrs: Laboratory Results - last 24 hr 06/17/17 06/18/17 06/18/17 Range/Units 21:22 05:00 05:00 WBC 8.52 (4.0-11.0) K/uL RBC 3.29 L (4.30-5.90) M/uL Hgb 9.7 L (12.0-16.0) g/dL Hct 29.5 L (36.0-46.0) % MCV 89.7 (80.0-98.0) fL MCH 29.5 (27.0-32.0) pg MCHC 32.9 (31.0-37.0) g/dL RDW Std Deviation 45.8 (28.0-62.0) fl RDW Coeff of Bobbi 14 (11.0-15.0) % Plt Count 236 (150-400) K/uL MPV 9.00 (7.40-12.00) fL Neut % (Auto) 71.7 (48.0-80.0) % Lymph % (Auto) 15.4 L (16.0-40.0) % [place] % (Auto) 10.2 (0.0-15.0) % Eos % (Auto) 2.5 (0.0-7.0) % Baso % (Auto) 0.2 (0.0-1.5) % Neut # (Auto) 6.1 H (1.4-5.7) K/uL Lymph # (Auto) 1.3 (0.6-2.4) K/uL [place] # (Auto) 0.9 H (0.0-0.8) K/uL Eos # (Auto) 0.2 (0.0-0.7) K/uL Baso # (Auto) 0.0 (0.0-0.1) K/uL Nucleated RBC % 0.0 /100WBC Nucleated RBCs # 0 K/uL Sodium 136 (136-146) mmol/L Potassium 3.6 (3.5-5.1) mmol/L Chloride 102 (98-110) mmol/L Carbon Dioxide 24 (21-31) mmol/L BUN 14 (6.0-23.0) mg/dL Creatinine 0.7 (0.6-1.5) mg/dL Est Cr Clr Drug Dosing 89.45 mL/min Estimated GFR (MDRD) > 60.0 ml/min Glucose 131 H (60-110) mg/dL POC Glucose 131 H (60-110) mg/dL Calcium 8.7 L (8.8-10.8) mg/dL Magnesium 1.0 L (1.5-2.3) mEq/L 06/18/17 06/18/17 Range/Units 06:13 12:03 WBC (4.0-11.0) K/uL RBC (4.30-5.90) M/uL Hgb (12.0-16.0) g/dL Hct (36.0-46.0) % MCV (80.0-98.0) fL MCH (27.0-32.0) pg MCHC (31.0-37.0) g/dL RDW Std Deviation (28.0-62.0) fl RDW Coeff of Bobbi (11.0-15.0) % Plt Count (150-400) K/uL MPV (7.40-12.00) fL Neut % (Auto) (48.0-80.0) % Lymph % (Auto) (16.0-40.0) % [place] % (Auto) (0.0-15.0) % Eos % (Auto) (0.0-7.0) % Baso % (Auto) (0.0-1.5) % Neut # (Auto) (1.4-5.7) K/uL Lymph # (Auto) (0.6-2.4) K/uL [place] # (Auto) (0.0-0.8) K/uL Eos # (Auto) (0.0-0.7) K/uL Baso # (Auto) (0.0-0.1) K/uL Nucleated RBC % /100WBC Nucleated RBCs # K/uL Sodium (136-146) mmol/L Potassium (3.5-5.1) mmol/L Chloride (98-110) mmol/L Carbon Dioxide (21-31) mmol/L BUN (6.0-23.0) mg/dL Creatinine (0.6-1.5) mg/dL Est Cr Clr Drug Dosing mL/min Estimated GFR (MDRD) ml/min Glucose (60-110) mg/dL POC Glucose 119 H 134 H (60-110) mg/dL Calcium (8.8-10.8) mg/dL Magnesium (1.5-2.3) mEq/L Med Orders - Current: Current Medications Acetaminophen (Tylenol Extra Strength) 1,000 mg PO ONARRIVE [facility] Last Admin: 06/17/17 07:28 Dose: 1,000 mg Acetaminophen (Tylenol Extra Strength) 1,000 mg PO Q6H [facility] Last Admin: 06/18/17 11:43 Dose: 1,000 mg Al Hydroxide/Mg Hydroxide (Mag-Al Plus) 30 ml PO Q4H PRN PRN Reason: indigestion Aspirin (Aspirin) 325 mg PO BID [facility] Last Admin: 06/18/17 09:08 Dose: 325 mg Bisacodyl (Dulcolax) 10 mg RECTAL DAILY PRN PRN Reason: Constipation Clonazepam (Klonopin) 1 mg PO TID PRN PRN Reason: Anxiety Last Admin: 06/18/17 11:43 Dose: 1 mg Diphenhydramine HCl (Benadryl) 25 - 50 mg PO Q6H PRN PRN Reason: Itching Docusate Sodium (Colace) 100 mg PO BID [facility] Last Admin: 06/18/17 09:08 Dose: 100 mg Escitalopram Oxalate (Lexapro) 20 mg PO DAILY [facility] Last Admin: 06/18/17 09:08 Dose: 20 mg Famotidine (Pepcid) 40 mg IVPUSH ONARRIVE [facility] Last Admin: 06/17/17 07:31 Dose: 40 mg Hydrochlorothiazide (Hydrochlorothiazide) 12.5 mg PO DAILY [facility] Hydromorphone HCl (Dilaudid) 0.5 - 1 mg IVPUSH Q3H PRN PRN Reason: Pain Last Admin: 06/18/17 01:20 Dose: 1 mg Cefazolin Sodium/Dextrose 2 gm (/ Premix) 50 mls @ 100 mls/hr IV ONCALL [facility] Ketorolac Tromethamine (Toradol) 30 mg IVPUSH ONARRIVE [facility] Last Admin: 06/17/17 07:30 Dose: 30 mg Lisinopril (Prinivil) 40 mg PO DAILY [facility] Ondansetron HCl (Zofran) 4 mg IV Q6HR PRN PRN Reason: NAUSEA/VOMITING Last Admin: 06/17/17 21:06 Dose: 4 mg Oxycodone HCl (Oxycontin) 20 mg PO ONARRIVE [facility] Oxycodone HCl (Oxycodone) 5 - 10 mg PO Q4H PRN PRN Reason: Pain Last Admin: 06/18/17 16:21 Dose: 10 mg Oxycodone HCl (Oxycontin) 20 mg PO Q12HR [facility] Last Admin: 06/18/17 09:08 Dose: 20 mg Pravastatin Sodium (Pravachol) 40 mg PO BEDTIME [facility] Last Admin: 06/17/17 20:51 Dose: 40 mg Scopolamine (Transderm-Scop) 1.5 mg TRDERM ONARRIVE [facility] Last Admin: 06/17/17 07:27 Dose: 1.5 mg Sodium Chloride (Saline Flush) 10 ml FLUSH ASDIRECTED PRN PRN Reason: Keep Vein Open Sodium Chloride (Saline Flush) 2.5 ml FLUSH ASDIRECTED PRN PRN Reason: Keep Vein Open Tranexamic Acid (Cyklokapron) 4,000 mg IV SEECOMMENT [facility] Discontinued Medications Acetaminophen (Tylenol Extra Strength) Confirm Administered Dose 1,000 mg .ROUTE .STK-MED ONE Stop: 06/17/17 06:53 Acetaminophen (Tylenol Extra Strength) 1,000 mg PO Q6H [facility] Last Admin: 06/17/17 11:21 Dose: Not Given Ephedrine Sulfate (Ephedrine Sulfate) Confirm Administered Dose 50 mg .ROUTE .STK-MED ONE Stop: 06/17/17 07:26 Ephedrine Sulfate (Ephedrine Sulfate) Confirm Administered Dose 50 mg .ROUTE .STK-MED ONE Stop: 06/17/17 07:37 Famotidine (Pepcid) Confirm Administered Dose 40 mg .ROUTE .STK-MED ONE Stop: 06/17/17 06:41 Last Admin: 06/17/17 07:41 Dose: Not Given Fentanyl (Sublimaze) Confirm Administered Dose 100 mcg .ROUTE .STK-MED ONE Stop: 06/17/17 07:23 Fentanyl (Sublimaze) Confirm Administered Dose 100 mcg .ROUTE .STK-MED ONE Stop: 06/17/17 08:41 Fentanyl (Sublimaze) 50 mcg IVPUSH Q5M PRN PRN Reason: Pain (severe 7-10) Stop: 06/18/17 09:05 Hydromorphone HCl (Dilaudid) 0 mg IVPUSH ONETIME ONE Stop: 06/17/17 09:06 Last Admin: 06/17/17 11:22 Dose: Not Given Ropivacaine 49.25 ml/Ketorolac Tromethamine 30 mg/Epinephrine HCl 0.5 mg/ Clonidine HCl 80 mcg/ Sodium Chloride 100 mls @ 50 mls/min INJECT ONETIME ONE Stop: 06/17/17 06:01 Last Admin: 06/17/17 11:21 Dose: Not Given Lactated Ringer's (Ringers, Lactated) 1,000 mls @ 100 mls/hr IV ASDIRECTED [facility] Last Admin: 06/18/17 04:49 Dose: 100 mls/hr Cefazolin Sodium/Dextrose 2 gm (/ Premix) 50 mls @ 100 mls/hr IV Q8HR [facility] Stop: 06/17/17 22:29 Last Admin: 06/17/17 22:15 Dose: 100 mls/hr Magnesium Sulfate 4 gm/ Premix 100 mls @ 50 mls/hr IV ONETIME ONE Stop: 06/18/17 16:45 Last Admin: 06/18/17 15:13 Dose: 50 mls/hr Ketorolac Tromethamine (Toradol) Confirm Administered Dose 30 mg .ROUTE .STK- MED ONE Stop: 06/17/17 06:53 Ketorolac Tromethamine (Toradol) Confirm Administered Dose 30 mg .ROUTE .STK- MED ONE Stop: 06/17/17 07:35 Lidocaine (Xylocaine-Mpf 2%) Confirm Administered Dose 10 ml .ROUTE .STK-MED ONE Stop: 06/17/17 07:22 Midazolam HCl (Versed 1 Mg/Ml) Confirm Administered Dose 2 mg .ROUTE .STK-MED ONE Stop: 06/17/17 07:23 Ondansetron HCl (Zofran) Confirm Administered Dose 4 mg .ROUTE .STK-MED ONE Stop: 06/17/17 07:26 Propofol (Diprivan 20 Ml) Confirm Administered Dose 400 mg .ROUTE .STK-MED ONE Stop: 06/17/17 07:23 Propofol (Diprivan 20 Ml) Confirm Administered Dose 200 mg .ROUTE .STK-MED ONE Stop: 06/17/17 09:19 Scopolamine (Transderm-Scop) Confirm Administered Dose 1.5 mg .ROUTE .STK-MED ONE Stop: 06/17/17 06:53 Tranexamic Acid (Cyklokapron) Confirm Administered Dose 4,000 mg .ROUTE .STK- MED ONE Stop: 06/17/17 07:21 - My Orders Last 24 Hours: Active Orders 24 hr Category Date Time Status Ready for Discharge [RC] PER UNIT ROUTINE Care 06/18/17 16:22 Active HEMOGLOBIN/HEMATOCRIT,HH [HEME] DAILY Lab 06/19/17 07:00 Ordered HEMOGLOBIN/HEMATOCRIT,HH [HEME] DAILY Lab 06/20/17 07:00 Ordered Aspirin Med 06/18/17 09:00 Active 325 mg PO BID ClonazePAM [KlonoPIN] Med 06/18/17 10:36 Active 1 mg PO TID PRN Docusate Sodium [Colace] Med 06/17/17 21:00 Active 100 mg PO BID Escitalopram [Lexapro] Med 06/18/17 09:00 Active 20 mg PO DAILY Hydrochlorothiazide Med 06/19/17 09:00 Active 12.5 mg PO DAILY Lisinopril [Prinivil] Med 06/19/17 09:00 Active 40 mg PO DAILY Pravastatin [Pravachol] Med 06/17/17 21:00 Active 40 mg PO BEDTIME Sodium Chloride 0.9% [Saline Flush] Med 06/18/17 08:49 Active 10 ml FLUSH ASDIRECTED PRN Sodium Chloride 0.9% [Saline Flush] Med 06/18/17 08:49 Active 2.5 ml FLUSH ASDIRECTED PRN oxyCODONE ER [OxyCONTIN] Med 06/17/17 21:00 Active 20 mg PO Q12HR Convert IV to Saline Lock [OM.PC] Routine Oth 06/18/17 08:49 Ordered Medication Orders Acetaminophen (Tylenol Extra Strength) 1,000 mg PO ONARRIVE [facility] Last Admin: 06/17/17 07:28 Dose: 1,000 mg Acetaminophen (Tylenol Extra Strength) 1,000 mg PO Q6H [facility] Last Admin: 06/18/17 11:43 Dose: 1,000 mg Admin: 06/18/17 06:00 Dose: 1,000 mg Admin: 06/18/17 00:00 Dose: 1,000 mg Admin: 06/17/17 17:01 Dose: 1,000 mg Admin: 06/17/17 11:31 Dose: 1,000 mg Al Hydroxide/Mg Hydroxide (Mag-Al Plus) 30 ml PO Q4H PRN PRN Reason: indigestion Aspirin (Aspirin) 325 mg PO BID [facility] Last Admin: 06/18/17 09:08 Dose: 325 mg Bisacodyl (Dulcolax) 10 mg RECTAL DAILY PRN PRN Reason: Constipation Clonazepam (Klonopin) 1 mg PO TID PRN PRN Reason: Anxiety Last Admin: 06/18/17 11:43 Dose: 1 mg Diphenhydramine HCl (Benadryl) 25 - 50 mg PO Q6H PRN PRN Reason: Itching Docusate Sodium (Colace) 100 mg PO BID [facility] Last Admin: 06/18/17 09:08 Dose: 100 mg Admin: 06/17/17 21:06 Dose: Not Given Escitalopram Oxalate (Lexapro) 20 mg PO DAILY [facility] Last Admin: 06/18/17 09:08 Dose: 20 mg Famotidine (Pepcid) 40 mg IVPUSH ONARRIVE [facility] Last Admin: 06/17/17 07:31 Dose: 40 mg Hydrochlorothiazide (Hydrochlorothiazide) 12.5 mg PO DAILY [facility] Hydromorphone HCl (Dilaudid) 0.5 - 1 mg IVPUSH Q3H PRN PRN Reason: Pain Last Admin: 06/18/17 01:20 Dose: 1 mg Admin: 06/17/17 22:06 Dose: 1 mg Admin: 06/17/17 18:27 Dose: 1 mg Admin: 06/17/17 12:29 Dose: 1 mg Cefazolin Sodium/Dextrose 2 gm (/ Premix) 50 mls @ 100 mls/hr IV ONCALL [facility] Ketorolac Tromethamine (Toradol) 30 mg IVPUSH ONARRIVE [facility] Last Admin: 06/17/17 07:30 Dose: 30 mg Lisinopril (Prinivil) 40 mg PO DAILY [facility] Ondansetron HCl (Zofran) 4 mg IV Q6HR PRN PRN Reason: NAUSEA/VOMITING Last Admin: 06/17/17 21:06 Dose: 4 mg Oxycodone HCl (Oxycontin) 20 mg PO ONARRIVE [facility] Oxycodone HCl (Oxycodone) 5 - 10 mg PO Q4H PRN PRN Reason: Pain Last Admin: 06/18/17 16:21 Dose: 10 mg Admin: 06/18/17 10:21 Dose: 10 mg Admin: 06/18/17 03:44 Dose: 10 mg Admin: 06/17/17 23:35 Dose: 10 mg Admin: 06/17/17 14:24 Dose: 10 mg Oxycodone HCl (Oxycontin) 20 mg PO Q12HR [facility] Last Admin: 06/18/17 09:08 Dose: 20 mg Admin: 06/17/17 20:51 Dose: 20 mg Pravastatin Sodium (Pravachol) 40 mg PO BEDTIME [facility] Last Admin: 06/17/17 20:51 Dose: 40 mg Scopolamine (Transderm-Scop) 1.5 mg TRDERM ONARRIVE [facility] Last Admin: 06/17/17 07:27 Dose: 1.5 mg Sodium Chloride (Saline Flush) 10 ml FLUSH ASDIRECTED PRN PRN Reason: Keep Vein Open Sodium Chloride (Saline Flush) 2.5 ml FLUSH ASDIRECTED PRN PRN Reason: Keep Vein Open Tranexamic Acid (Cyklokapron) 4,000 mg IV SEECOMMENT [facility] - Plan Plan (Free Text/Narrative):: 1800 Patient seen and examined. Did well with PT today. Pain well controlled. Dressing dry/intact. NVI. No calf TTP. Hgb stable. Will plan to discharge home today. Follow up as arranged. Continue PT outpatient. Continue current pain management. Patient and family agree with plan.
[2017-06-18] MEDS ORDERED: Escitalopram 10 MG Tab PO SCH (09:00)
[2017-06-18] MEDS ORDERED: Aspirin 325 MG Tab PO SCH (09:00)
[2017-06-18] MEDS: Docusate Sodium 100 MG Cap PO SCH (09:08)
[2017-06-18] MEDS: oxyCODONE ER 20 MG TAB.ER PO SCH (09:08)
[2017-06-18] MEDS ORDERED: ClonazePAM 1 MG Tab PO PRN (10:36)
[2017-06-18 11:52] VITALS: BP 162/73
--- NOTE | 2017-06-18 14:25 | PCM.CONSN ---
- General Info Date of Service: 06/18/17 Subjective Update: ambulating well. - Patient Data Vitals - Most Recent: Last Vital Signs Temp 99.2 F 06/18/17 11:00 Pulse 110 H 06/18/17 11:00 Resp 18 06/18/17 11:00 BP 162/73 H 06/18/17 11:00 Pulse Ox 93 L 06/18/17 11:00 Weight - Most Recent: 86.183 kg I&O - Last 24 Hours: Intake & Output 06/17/17 06/18/17 06/18/17 22:59 06:59 14:59 Intake Total 1521 1350 Output Total 275 750 Balance 1246 600 Lab Results Last 24 Hours: Laboratory Results - last 24 hr 06/17/17 06/17/17 06/18/17 Range/Units 16:57 21:22 05:00 WBC 8.52 (4.0-11.0) K/uL RBC 3.29 L (4.30-5.90) M/uL Hgb 9.7 L (12.0-16.0) g/dL Hct 29.5 L (36.0-46.0) % MCV 89.7 (80.0-98.0) fL MCH 29.5 (27.0-32.0) pg MCHC 32.9 (31.0-37.0) g/dL RDW Std Deviation 45.8 (28.0-62.0) fl RDW Coeff of Bobbi 14 (11.0-15.0) % Plt Count 236 (150-400) K/uL MPV 9.00 (7.40-12.00) fL Neut % (Auto) 71.7 (48.0-80.0) % Lymph % (Auto) 15.4 L (16.0-40.0) % Florence % (Auto) 10.2 (0.0-15.0) % Eos % (Auto) 2.5 (0.0-7.0) % Baso % (Auto) 0.2 (0.0-1.5) % Neut # (Auto) 6.1 H (1.4-5.7) K/uL Lymph # (Auto) 1.3 (0.6-2.4) K/uL Florence # (Auto) 0.9 H (0.0-0.8) K/uL Eos # (Auto) 0.2 (0.0-0.7) K/uL Baso # (Auto) 0.0 (0.0-0.1) K/uL Nucleated RBC % 0.0 /100WBC Nucleated RBCs # 0 K/uL Sodium (136-146) mmol/L Potassium (3.5-5.1) mmol/L Chloride (98-110) mmol/L Carbon Dioxide (21-31) mmol/L BUN (6.0-23.0) mg/dL Creatinine (0.6-1.5) mg/dL Est Cr Clr Drug Dosing mL/min Estimated GFR (MDRD) ml/min Glucose (60-110) mg/dL POC Glucose 132 H 131 H (60-110) mg/dL Calcium (8.8-10.8) mg/dL Magnesium (1.5-2.3) mEq/L 06/18/17 06/18/17 06/18/17 Range/Units 05:00 06:13 12:03 WBC (4.0-11.0) K/uL RBC (4.30-5.90) M/uL Hgb (12.0-16.0) g/dL Hct (36.0-46.0) % MCV (80.0-98.0) fL MCH (27.0-32.0) pg MCHC (31.0-37.0) g/dL RDW Std Deviation (28.0-62.0) fl RDW Coeff of Bobbi (11.0-15.0) % Plt Count (150-400) K/uL MPV (7.40-12.00) fL Neut % (Auto) (48.0-80.0) % Lymph % (Auto) (16.0-40.0) % Florence % (Auto) (0.0-15.0) % Eos % (Auto) (0.0-7.0) % Baso % (Auto) (0.0-1.5) % Neut # (Auto) (1.4-5.7) K/uL Lymph # (Auto) (0.6-2.4) K/uL Florence # (Auto) (0.0-0.8) K/uL Eos # (Auto) (0.0-0.7) K/uL Baso # (Auto) (0.0-0.1) K/uL Nucleated RBC % /100WBC Nucleated RBCs # K/uL Sodium 136 (136-146) mmol/L Potassium 3.6 (3.5-5.1) mmol/L Chloride 102 (98-110) mmol/L Carbon Dioxide 24 (21-31) mmol/L BUN 14 (6.0-23.0) mg/dL Creatinine 0.7 (0.6-1.5) mg/dL Est Cr Clr Drug Dosing 89.45 mL/min Estimated GFR (MDRD) > 60.0 ml/min Glucose 131 H (60-110) mg/dL POC Glucose 119 H 134 H (60-110) mg/dL Calcium 8.7 L (8.8-10.8) mg/dL Magnesium 1.0 L (1.5-2.3) mEq/L Med Orders - Current: Current Medications Acetaminophen (Tylenol Extra Strength) 1,000 mg PO ONARRIVE [facility] Last Admin: 06/17/17 07:28 Dose: 1,000 mg Acetaminophen (Tylenol Extra Strength) 1,000 mg PO Q6H [facility] Last Admin: 06/18/17 11:43 Dose: 1,000 mg Al Hydroxide/Mg Hydroxide (Mag-Al Plus) 30 ml PO Q4H PRN PRN Reason: indigestion Aspirin (Aspirin) 325 mg PO BID [facility] Last Admin: 06/18/17 09:08 Dose: 325 mg Bisacodyl (Dulcolax) 10 mg RECTAL DAILY PRN PRN Reason: Constipation Clonazepam (Klonopin) 1 mg PO TID PRN PRN Reason: Anxiety Last Admin: 06/18/17 11:43 Dose: 1 mg Diphenhydramine HCl (Benadryl) 25 - 50 mg PO Q6H PRN PRN Reason: Itching Docusate Sodium (Colace) 100 mg PO BID [facility] Last Admin: 06/18/17 09:08 Dose: 100 mg Escitalopram Oxalate (Lexapro) 20 mg PO DAILY [facility] Last Admin: 06/18/17 09:08 Dose: 20 mg Famotidine (Pepcid) 40 mg IVPUSH ONARRIVE [facility] Last Admin: 06/17/17 07:31 Dose: 40 mg Hydrochlorothiazide (Hydrochlorothiazide) 12.5 mg PO DAILY [facility] Hydromorphone HCl (Dilaudid) 0.5 - 1 mg IVPUSH Q3H PRN PRN Reason: Pain Last Admin: 06/18/17 01:20 Dose: 1 mg Cefazolin Sodium/Dextrose 2 gm (/ Premix) 50 mls @ 100 mls/hr IV ONCALL [facility] Ketorolac Tromethamine (Toradol) 30 mg IVPUSH ONARRIVE [facility] Last Admin: 06/17/17 07:30 Dose: 30 mg Lisinopril (Prinivil) 40 mg PO DAILY [facility] Ondansetron HCl (Zofran) 4 mg IV Q6HR PRN PRN Reason: NAUSEA/VOMITING Last Admin: 06/17/17 21:06 Dose: 4 mg Oxycodone HCl (Oxycontin) 20 mg PO ONARRIVE [facility] Oxycodone HCl (Oxycodone) 5 - 10 mg PO Q4H PRN PRN Reason: Pain Last Admin: 06/18/17 10:21 Dose: 10 mg Oxycodone HCl (Oxycontin) 20 mg PO Q12HR [facility] Last Admin: 06/18/17 09:08 Dose: 20 mg Pravastatin Sodium (Pravachol) 40 mg PO BEDTIME [facility] Last Admin: 06/17/17 20:51 Dose: 40 mg Scopolamine (Transderm-Scop) 1.5 mg TRDERM ONARRIVE [facility] Last Admin: 06/17/17 07:27 Dose: 1.5 mg Sodium Chloride (Saline Flush) 10 ml FLUSH ASDIRECTED PRN PRN Reason: Keep Vein Open Sodium Chloride (Saline Flush) 2.5 ml FLUSH ASDIRECTED PRN PRN Reason: Keep Vein Open Tranexamic Acid (Cyklokapron) 4,000 mg IV SEECOMMENT [facility] Discontinued Medications Acetaminophen (Tylenol Extra Strength) Confirm Administered Dose 1,000 mg .ROUTE .STK-MED ONE Stop: 06/17/17 06:53 Acetaminophen (Tylenol Extra Strength) 1,000 mg PO Q6H [facility] Last Admin: 06/17/17 11:21 Dose: Not Given Ephedrine Sulfate (Ephedrine Sulfate) Confirm Administered Dose 50 mg .ROUTE .STK-MED ONE Stop: 06/17/17 07:26 Ephedrine Sulfate (Ephedrine Sulfate) Confirm Administered Dose 50 mg .ROUTE .STK-MED ONE Stop: 06/17/17 07:37 Famotidine (Pepcid) Confirm Administered Dose 40 mg .ROUTE .STK-MED ONE Stop: 06/17/17 06:41 Last Admin: 06/17/17 07:41 Dose: Not Given Fentanyl (Sublimaze) Confirm Administered Dose 100 mcg .ROUTE .STK-MED ONE Stop: 06/17/17 07:23 Fentanyl (Sublimaze) Confirm Administered Dose 100 mcg .ROUTE .STK-MED ONE Stop: 06/17/17 08:41 Fentanyl (Sublimaze) 50 mcg IVPUSH Q5M PRN PRN Reason: Pain (severe 7-10) Stop: 06/18/17 09:05 Hydromorphone HCl (Dilaudid) 0 mg IVPUSH ONETIME ONE Stop: 06/17/17 09:06 Last Admin: 06/17/17 11:22 Dose: Not Given Ropivacaine 49.25 ml/Ketorolac Tromethamine 30 mg/Epinephrine HCl 0.5 mg/ Clonidine HCl 80 mcg/ Sodium Chloride 100 mls @ 50 mls/min INJECT ONETIME ONE Stop: 06/17/17 06:01 Last Admin: 06/17/17 11:21 Dose: Not Given Lactated Ringer's (Ringers, Lactated) 1,000 mls @ 100 mls/hr IV ASDIRECTED [facility] Last Admin: 06/18/17 04:49 Dose: 100 mls/hr Cefazolin Sodium/Dextrose 2 gm (/ Premix) 50 mls @ 100 mls/hr IV Q8HR [facility] Stop: 06/17/17 22:29 Last Admin: 06/17/17 22:15 Dose: 100 mls/hr Ketorolac Tromethamine (Toradol) Confirm Administered Dose 30 mg .ROUTE .STK- MED ONE Stop: 06/17/17 06:53 Ketorolac Tromethamine (Toradol) Confirm Administered Dose 30 mg .ROUTE .STK- MED ONE Stop: 06/17/17 07:35 Lidocaine (Xylocaine-Mpf 2%) Confirm Administered Dose 10 ml .ROUTE .STK-MED ONE Stop: 06/17/17 07:22 Midazolam HCl (Versed 1 Mg/Ml) Confirm Administered Dose 2 mg .ROUTE .STK-MED ONE Stop: 06/17/17 07:23 Ondansetron HCl (Zofran) Confirm Administered Dose 4 mg .ROUTE .STK-MED ONE Stop: 06/17/17 07:26 Propofol (Diprivan 20 Ml) Confirm Administered Dose 400 mg .ROUTE .STK-MED ONE Stop: 06/17/17 07:23 Propofol (Diprivan 20 Ml) Confirm Administered Dose 200 mg .ROUTE .STK-MED ONE Stop: 06/17/17 09:19 Scopolamine (Transderm-Scop) Confirm Administered Dose 1.5 mg .ROUTE .STK-MED ONE Stop: 06/17/17 06:53 Tranexamic Acid (Cyklokapron) Confirm Administered Dose 4,000 mg .ROUTE .STK- MED ONE Stop: 06/17/17 07:21 - Exam General: Alert Consult PN Assessment/Plan Procedures: Procedures CHEST X-RAY 2VW FRONTAL&LATL (06/04/17) COMPLETE CBC W/AUTO DIFF WBC (06/04/17) COMPREHEN METABOLIC PANEL (05/15/17) GLYCOSYLATED HEMOGLOBIN TEST (06/04/17) LIPID PANEL (05/15/17) METABOLIC PANEL TOTAL CA (06/04/17) MRI JNT OF LWR EXTRE W/O DYE (05/20/17) PROTHROMBIN TIME (06/04/17) ROUTINE VENIPUNCTURE (06/04/17) URINALYSIS AUTO W/SCOPE (06/04/17) X-RAY EXAM KNEE 4 OR MORE (05/07/17) (1) Total knee replacement status SNOMED Code(s): 3327486335473, 358187712, 0422293664156 Code(s): Z96.659 - PRESENCE OF UNSPECIFIED ARTIFICIAL KNEE JOINT Current Visit: Yes (2) History of chronic hypertension SNOMED Code(s): 255692280 Code(s): Z86.79 - PERSONAL HISTORY OF OTHER DISEASES OF THE CIRCULATORY SYSTEM Current Visit: Yes (3) Diabetes mellitus SNOMED Code(s): 89907699 Code(s): E11.9 - TYPE 2 DIABETES MELLITUS WITHOUT COMPLICATIONS Current Visit: Yes Problem List Initiated/Reviewed/Updated: Yes My Orders Last 24 Hours: My Active Orders 06/17/17 21:00 Pravastatin [Pravachol] 40 mg PO BEDTIME 06/18/17 09:00 Escitalopram [Lexapro] 20 mg PO DAILY 06/18/17 10:36 ClonazePAM [KlonoPIN] 1 mg PO TID PRN 06/19/17 09:00 Hydrochlorothiazide 12.5 mg PO DAILY Lisinopril [Prinivil] 40 mg PO DAILY Plan: May be discharged on her home antihypertensives when cleared by orthopedics. She may restart metformin at discharge. Follow up with her primary care provider on a routine basis regarding her HTN and DM. MD Narda
[2017-06-18] MEDS ORDERED: Magnesium Sulfate/Water 4 GM in Premix Bag 1 BAG IV ONE (14:46)
--- NOTE | 2017-06-18 16:39 | PCM.SN ---
- Free Text/Narrative Note: Discharge summary Dressing was changed prior to discharge. See discharge plan for complete list of discharge medications and instructions. Dictation #: [id number]
--- NOTE | 2017-06-19 02:31 | DISCH ---
DATE OF DISCHARGE: 06/18/2017 PRIMARY CARE PHYSICIAN: Anyi Melton PAM ADMITTING DIAGNOSIS: Degenerative joint disease, right knee, tricompartmental. OTHER MEDICAL DIAGNOSES: 1. Diabetes type 2. 2. Gastroesophageal reflux disease. 3. Hypertension. 4. Anxiety. DISCHARGE DIAGNOSES: 1. Status post right total knee arthroplasty. 2. Diabetes type 2. 3. Gastroesophageal reflux disease. 4. Hypertension. 5. Anxiety. BRIEF HISTORY: Teresita is a 56-year-old female, who has had complaint of progressive right knee pain. She had previously undergone a left total knee arthroplasty at an outlying facility, which was complicated by a periprosthetic fracture approximately 2 weeks after surgery. She went on to heal the fracture well. She was continued to have pain in her right knee. She has failed conservative treatment. Due to her lack of response to conservative treatment, surgical intervention was recommended at that time. OPERATION: Right total knee arthroplasty. HOSPITAL COURSE: Pain was controlled with a combination of p.o. and IV pain medications. The patient was given 2 doses of Ancef postoperatively for 24 hours of antibiotic coverage. The patient was followed by hospitalist and Physical Therapy during her hospital stay. Upon discharge, the patient's vital signs were stable, and she is afebrile. Hemoglobin on day of discharge is 9.7. Aspirin 325 mg PO BID was started on postop day #1 for DVT prophylaxis. Pain is currently controlled with oral pain medications only. The patient is tolerating oral intake and ambulating with wheeled walker. She feels comfortable with discharge to home today. DISCHARGE MEDICATIONS: 1. Tylenol 500 mg. 2. Oxycodone 5 mg. 3. OxyContin 20 mg. 4. Colace 100 mg. 5. Aspirin 325 mg. DISCHARGE INSTRUCTIONS: 1. The patient will follow up in the clinic on June 27, 2017. This appointment has been made for the patient. 2. Outpatient physical therapy 2 to 3 times a week for 4 to 6 weeks. 3. [facility] to the right knee. 4. VÍCTOR hose to the right lower extremity, on in the morning and off in the evening. For a complete medication reconciliation and discharge instructions, please refer to the patient's EHR. If the patient has questions or concerns prior to followup appointment, she may call the clinic. ANAM HARRIS /[id number] MTDD
[2017-06-19] MEDS ORDERED: Lisinopril 10 MG Tab PO SCH (09:00)
[2017-06-19] MEDS ORDERED: Hydrochlorothiazide 12.5 MG Cap PO SCH (09:00)
== END 2017-06-18 18:10 | disposition home or self-care (01) | DRG 470 ==
LOC: MW.ICU 06:30 → MW.MS 19:50
PROVIDERS: ADMIT Orthopaedic Surgery; ATTEND Orthopaedic Surgery
PROC: 0SRC0J9 Replacement of Right Knee Joint with Synthetic Substitute, Cemented, Open Approach (ICD-10-PCS; principal; 2017-06-17)
DX: M17.11 Unilateral primary osteoarthritis, right knee (principal); E11.9 Type 2 diabetes mellitus without complications; K21.9 Gastro-esophageal reflux disease without esophagitis; I10 Essential (primary) hypertension; E78.00 Pure hypercholesterolemia, unspecified; F41.9 Anxiety disorder, unspecified; Z88.8 Allergy status to other drugs, medicaments and biological substances; Z88.2 Allergy status to sulfonamides; Z79.899 Other long term (current) drug therapy
CPT/HCPCS: 01402; 36415; 73560-26-RT; 73560-RT; 80048; 82962; 83735; 85025; 86850; 86900; 86901; 88304; 88311; 97110-GP; 97116-GP; 97161-GP; A9270-GY; C1713; C1776; J0171; J0690; J0735; J1170; J1885; J2250; J2405; J2704; J2795; J3010; J3475; J7050; J7120

== ENCOUNTER 2017-06-20 07:44 | Emergency (ER) | payer MEDICARE ==
[2017-06-20] MEDS ORDERED: Sodium Chloride 0.9% 2.5 ML Syringe FLUSH PRN (08:11)
[2017-06-20] MEDS ORDERED: Sodium Chloride 0.9% 10 ML Syringe FLUSH PRN (08:11)
--- NOTE | 2017-06-20 08:24 | EDM.PDOC ---
ED HPI GENERAL MEDICAL PROBLEM - General Chief Complaint: Fever Stated Complaint: RECENT RT KNEE SURGERY-BLOOD POOLING & FEVER Time Seen by Provider: 06/20/17 08:04 Source of Information: Reports: Patient History Limitations: Reports: No Limitations - History of Present Illness INITIAL COMMENTS - FREE TEXT/NARRATIVE: History of present illness: []Patient is postop day 3 from a right total knee replacement and presents complaining of a fever since last night. She is able to get out of bed this morning and then noted her drain filled up with blood. Patient denies any chest pain, shortness of breath, cough or urinary difficulty. Review of systems: As per history of present illness and below otherwise all systems reviewed and negative. Past medical history: As per history of present illness and as reviewed below otherwise noncontributory. Surgical history: As per history of present illness and as reviewed below otherwise noncontributory. Social history: No reported history of drug or alcohol abuse. Family history: As per history of present illness and as reviewed below otherwise noncontributory. Physical exam: General: Well developed, well nourished in NAD HEENT: Atraumatic, normocephalic, pupils reactive, negative for conjunctival pallor or scleral icterus, mucous membranes moist, throat clear, neck supple, nontender, trachea midline. Lungs: Clear to auscultation, breath sounds equal bilaterally, chest nontender. Heart: S1S2, regular, negative for clicks, rubs, or JVD. Abdomen: Soft, nondistended, nontender. Negative for masses or hepatosplenomegaly. Negative for costovertebral tenderness. Pelvis: Stable nontender. Genitourinary: Deferred. Rectal: Deferred. Extremities: Atraumatic, negative for cords or calf pain. Neurovascular unremarkable. Neuro: Awake, alert, oriented. Cranial nerves II through XII unremarkable. Cerebellum unremarkable. Motor and sensory unremarkable throughout. Exam nonfocal. Diagnostics: []Labs show mild anemia white count is normal and bilateral ultrasound done both negative Therapeutics: []Dressing changed Dr. Vargas was consulted and evaluated patient in the ED Impression: []Post operative pain and low-grade fever Plan: []Follow-up with Dr. Vargas on June 24 at 10 AM in her clinic, change dressings daily, continue using incentive spirometer frequently, increase fluids and continue regular meds. Definitive disposition and diagnosis as appropriate pending reevaluation and review of above. Right Leg Pain Score (Numeric/FACES): 6 - Related Data Allergies Allergy/AdvReac Type Severity Reaction Status Date / Time celecoxib [From Celebrex] Allergy Muscle Verified 06/20/17 07:56 Aches duloxetine [From Cymbalta] Allergy Muscle Verified 06/20/17 07:56 Aches pumpkin Allergy Nausea and Verified 06/20/17 07:56 Vomiting Sulfa (Sulfonamide Allergy Rash Verified 06/20/17 07:56 Antibiotics) tramadol [From Ultram] Allergy Hyperactivi Verified 06/20/17 07:56 ty bee stings Allergy Anaphylactic Uncoded 06/17/17 07:57 Shock gold Allergy Redness Uncoded 06/17/17 07:57 Home Meds: Home Meds Aspirin [[place] Aspirin] 81 mg PO DAILY 06/14/17 [History] Cetirizine HCl [Zyrtec] 10 mg PO DAILY 06/14/17 [History] ClonazePAM [KlonoPIN] 1 mg PO BID 06/14/17 [History] EPINEPHrine [Epipen] 1 injection SUBCUT ASDIRECTED PRN 06/14/17 [History] Escitalopram Oxalate 20 mg PO DAILY 06/14/17 [History] Ferrous Sulfate [Iron] 325 mg PO ASDIRECTED 06/14/17 [History] Hydrochlorothiazide 12.5 mg PO DAILY 06/14/17 [History] L.acidoph,Paracasei, B.lactis [Probiotic] 1 tab PO DAILY 06/14/17 [History] Lavender Oil [Lavender Fragrance Oil] 1 applic TOP ASDIRECTED 06/14/17 [History] Lisinopril 40 mg PO DAILY 06/14/17 [History] Meloxicam 15 mg PO DAILY 06/14/17 [History] Metoprolol Succinate 50 mg PO ASDIRECTED 06/14/17 [History] Mv-Mn/Folic Acid/Calcium/Vit K [Women's 50 Plus Daily Formula] 1 tab PO DAILY [History] Potassium Chloride 10 meq PO DAILY 06/14/17 [History] Pravastatin Sodium [Pravachol] 40 mg PO BEDTIME 06/14/17 [History] Turmeric/Turmeric Ext/Pepr Ext [Turmeric Complex 500 mg Cap] 1 tab PO BID [History] metFORMIN HCl [Metformin HCl] 500 mg PO BID 06/14/17 [History] Acetaminophen [Tylenol Extra Strength] 1,000 mg PO Q6H #100 tablet 06/18/17 [Rx] Aspirin 325 mg PO BID #90 tablet 06/18/17 [Rx] Docusate Sodium [Colace] 100 mg PO BID #60 cap 06/18/17 [Rx] oxyCODONE 5 - 10 mg PO Q4H PRN #80 tablet 06/18/17 [Rx] oxyCODONE ER [OxyCONTIN] 20 mg PO Q12HR #20 tab.er 06/18/17 [Rx] Past Medical History HEENT History: Reports: Allergic Rhinitis, Other (See Below) Other HEENT History: wears glasses Cardiovascular History: Reports: High Cholesterol, Hypertension Gastrointestinal History: Reports: GERD, Irritable Bowel Syndrome Other Gastrointestinal History: hx gastric ulcer, tested positive for hep C Genitourinary History: Reports: Renal Calculus [employer] History: Reports: Musculoskeletal History: Reports: Back Pain, Chronic, Fracture, Osteoarthritis Neurological History: Reports: Concussion Psychiatric History: Reports: Anxiety, Depression Endocrine/Metabolic History: Reports: Diabetes, Type II Hematologic History: Reports: Blood Transfusion(s) - Infectious Disease History Infectious Disease History: Reports: Hepatitis A, Hepatitis C, Measles - Past Surgical History Head Surgeries/Procedures: Reports: None GI Surgical History: Reports: Cholecystectomy Female Surgical History: Reports: Hysterectomy Musculoskeletal Surgical History: Reports: Knee Replacement, ORIF Other Musculoskeletal Surgeries/Procedures:: ORIF fx left femur, left TKA Social & Family History - Family History Family Medical History: Noncontributory - Tobacco Use Smoking Status *Q: Never Smoker - Caffeine Use Caffeine Use: Reports: None Caffeine Use Comment: Used rarely. - Recreational Drug Use Recreational Drug Use: No ED ROS GENERAL - Review of Systems Review Of Systems: See Below (See history of present illness) ED EXAM, GENERAL - Physical Exam Exam: See Below (See history of present illness) Course - Vital Signs Last Recorded V/S: Last Vital Signs Temp 37.7 C 06/20/17 09:42 Pulse 107 H 06/20/17 09:42 Resp 12 06/20/17 09:42 BP 134/65 06/20/17 09:42 Pulse Ox 97 06/20/17 09:42 - Orders/Labs/Meds Orders: Active Orders 24 hr Category Date Time Status CULTURE BLOOD [BC] Stat Lab 06/20/17 08:40 Received CULTURE BLOOD [BC] Stat Lab 06/20/17 08:57 Received Sodium Chloride 0.9% [Saline Flush] Med 06/20/17 08:11 Active 10 ml FLUSH ASDIRECTED PRN Sodium Chloride 0.9% [Saline Flush] Med 06/20/17 08:11 Active 2.5 ml FLUSH ASDIRECTED PRN Blood Culture x2 Reflex Set [OM.PC] Stat Oth 06/20/17 08:10 Ordered Saline Lock Insert [OM.PC] Stat Oth 06/20/17 08:10 Ordered Medication Orders Sodium Chloride (Saline Flush) 10 ml FLUSH ASDIRECTED PRN PRN Reason: Keep Vein Open Last Admin: 06/20/17 08:47 Dose: 10 ml Sodium Chloride (Saline Flush) 2.5 ml FLUSH ASDIRECTED PRN PRN Reason: Keep Vein Open Last Admin: 06/20/17 08:48 Dose: 2.5 ml Labs: Laboratory Tests 06/20/17 06/20/17 06/20/17 Range/Units 08:40 08:40 08:40 WBC 8.62 (4.0-11.0) K/uL RBC 2.97 L (4.30-5.90) M/uL Hgb 8.8 L (12.0-16.0) g/dL Hct 27.0 L (36.0-46.0) % MCV 90.9 (80.0-98.0) fL MCH 29.6 (27.0-32.0) pg MCHC 32.6 (31.0-37.0) g/dL RDW Std Deviation 47.5 (28.0-62.0) fl RDW Coeff of Bobbi 14 (11.0-15.0) % Plt Count 233 (150-400) K/uL MPV 8.70 (7.40-12.00) fL Neut % (Auto) 66.5 (48.0-80.0) % Lymph % (Auto) 18.9 (16.0-40.0) % Preston % (Auto) 11.4 (0.0-15.0) % Eos % (Auto) 2.9 (0.0-7.0) % Baso % (Auto) 0.3 (0.0-1.5) % Neut # (Auto) 5.7 (1.4-5.7) K/uL Lymph # (Auto) 1.6 (0.6-2.4) K/uL Preston # (Auto) 1.0 H (0.0-0.8) K/uL Eos # (Auto) 0.3 (0.0-0.7) K/uL Baso # (Auto) 0.0 (0.0-0.1) K/uL Nucleated RBC % 0.0 /100WBC Nucleated RBCs # 0 K/uL ESR 86 H (0-29) mm/hr Sodium 137 (136-146) mmol/L Potassium 3.6 (3.5-5.1) mmol/L Chloride 101 (98-110) mmol/L Carbon Dioxide 25 (21-31) mmol/L BUN 11 (6.0-23.0) mg/dL Creatinine 0.7 (0.6-1.5) mg/dL Est Cr Clr Drug Dosing 86.23 mL/min Estimated GFR (MDRD) > 60.0 ml/min Glucose 106 (60-110) mg/dL Calcium 8.9 (8.8-10.8) mg/dL Total Bilirubin 0.8 (0.1-1.5) mg/dL AST 29 (5-40) IU/L ALT 26 (8-54) IU/L Alkaline Phosphatase 116 (40-150) C-Reactive Protein (0.0-0.5) mg/dL Total Protein 6.4 (6.0-8.0) g/dL Albumin 3.6 (3.5-5.0) g/dL Globulin 2.8 (2.0-3.5) g/dL Albumin/Globulin Ratio 1.3 (1.3-2.8) 06/20/17 Range/Units 08:40 WBC (4.0-11.0) K/uL RBC (4.30-5.90) M/uL Hgb (12.0-16.0) g/dL Hct (36.0-46.0) % MCV (80.0-98.0) fL MCH (27.0-32.0) pg MCHC (31.0-37.0) g/dL RDW Std Deviation (28.0-62.0) fl RDW Coeff of Bobbi (11.0-15.0) % Plt Count (150-400) K/uL MPV (7.40-12.00) fL Neut % (Auto) (48.0-80.0) % Lymph % (Auto) (16.0-40.0) % Preston % (Auto) (0.0-15.0) % Eos % (Auto) (0.0-7.0) % Baso % (Auto) (0.0-1.5) % Neut # (Auto) (1.4-5.7) K/uL Lymph # (Auto) (0.6-2.4) K/uL Preston # (Auto) (0.0-0.8) K/uL Eos # (Auto) (0.0-0.7) K/uL Baso # (Auto) (0.0-0.1) K/uL Nucleated RBC % /100WBC Nucleated RBCs # K/uL ESR (0-29) mm/hr Sodium (136-146) mmol/L Potassium (3.5-5.1) mmol/L Chloride (98-110) mmol/L Carbon Dioxide (21-31) mmol/L BUN (6.0-23.0) mg/dL Creatinine (0.6-1.5) mg/dL Est Cr Clr Drug Dosing mL/min Estimated GFR (MDRD) ml/min Glucose (60-110) mg/dL Calcium (8.8-10.8) mg/dL Total Bilirubin (0.1-1.5) mg/dL AST (5-40) IU/L ALT (8-54) IU/L Alkaline Phosphatase (40-150) C-Reactive Protein 47.78 H (0.0-0.5) mg/dL Total Protein (6.0-8.0) g/dL Albumin (3.5-5.0) g/dL Globulin (2.0-3.5) g/dL Albumin/Globulin Ratio (1.3-2.8) Meds: Medications Generic Name Dose Route Start Last Admin Trade Name Freq PRN Reason Stop Dose Admin Sodium Chloride 10 ml 06/20/17 08:11 06/20/17 08:47 Saline Flush FLUSH 10 ml ASDIRECTED PRN Administration Keep Vein Open Sodium Chloride 2.5 ml 06/20/17 08:11 06/20/17 08:48 Saline Flush FLUSH 2.5 ml ASDIRECTED PRN Administration Keep Vein Open Discontinued Medications Generic Name Dose Route Start Last Admin Trade Name Dru PRN Reason Stop Dose Admin Morphine Sulfate 4 mg 06/20/17 08:41 06/20/17 08:48 Morphine IVPUSH 06/20/17 08:42 4 mg ONETIME ONE Administration Departure - Departure Time of Disposition: 10:23 Disposition: Home, Self-Care 01 Condition: Good Clinical Impression: Postoperative pain of right knee Clinical Impression: (Ruled Out): Postoperative pain - Discharge Information Referrals: Anyi Melton NP [Primary Care Provider] - Forms: ED Department Discharge Additional Instructions: The following information is given to patients seen in the emergency department who are being discharged to home. This information is to outline your options for follow-up care. We provide all patients seen in our emergency department with a follow-up referral. The need for follow-up, as well as the timing and circumstances, are variable depending upon the specifics of your emergency department visit. If you don't have a primary care physician on staff, we will provide you with a referral. We always advise you to contact your personal physician following an emergency department visit to inform them of the circumstance of the visit and for follow-up with them and/or the need for any referrals to a consulting specialist. The emergency department will also refer you to a specialist when appropriate. This referral assures that you have the opportunity for follow-up care with a specialist. All of these measure are taken in an effort to provide you with optimal care, which includes your follow-up. Under all circumstances we always encourage you to contact your private physician who remains a resource for coordinating your care. When calling for follow-up care, please make the office aware that this follow-up is from your recent emergency room visit. If for any reason you are refused follow-up, please contact the [facility] Emergency Department at and asked to speak to the emergency department charge nurse. Continue current medications, change dressings twice daily, continue incentive spirometry frequently, increase fluids, follow-up with Dr. Vargas in our office on June 24 at 10AM [facility] [address], [address] [place] [address] - My Orders Last 24 Hours: My Active Orders 06/20/17 08:10 Blood Culture x2 Reflex Set [OM.PC] Stat Saline Lock Insert [OM.PC] Stat 06/20/17 08:11 Sodium Chloride 0.9% [Saline Flush] 10 ml FLUSH ASDIRECTED PRN Sodium Chloride 0.9% [Saline Flush] 2.5 ml FLUSH ASDIRECTED PRN 06/20/17 08:40 CULTURE BLOOD [BC] Stat 06/20/17 08:57 CULTURE BLOOD [BC] Stat - Assessment/Plan Last 24 Hours: My Active Orders 06/20/17 08:10 Blood Culture x2 Reflex Set [OM.PC] Stat Saline Lock Insert [OM.PC] Stat 06/20/17 08:11 Sodium Chloride 0.9% [Saline Flush] 10 ml FLUSH ASDIRECTED PRN Sodium Chloride 0.9% [Saline Flush] 2.5 ml FLUSH ASDIRECTED PRN 06/20/17 08:40 CULTURE BLOOD [BC] Stat 06/20/17 08:57 CULTURE BLOOD [BC] Stat
[2017-06-20] MEDS ORDERED: Morphine 2 MG/ML Syringe IVPUSH ONE (08:41)
[2017-06-20 09:30] LABS: CHLORIDE,CL 101 mmol/L (98-110); SODIUM,NA 137 mmol/L (136-146)
--- NOTE | 2017-06-20 09:53 | US ---
ULTRASOUND EXAMINATION OF the left and right lower lower extremities WITH DOPPLER HISTORY: Pain FINDINGS: Examination of the left and right lower legs were performed from the groin to the calf region. All v isualized segments including common femoral, proximal greater saphenous, superficial femoral, poplite al and calf veins appear patent with good compressibility and augmentation. There is no evidence of deep vein thrombosis. IMPRESSION: No evidence of a DVT.
--- NOTE | 2017-06-20 10:21 | PCM.SN ---
- Free Text/Narrative Note: Patient presented earlier to the emergency department. She states she was having increased pain in her right knee. She states she was also running a low- grade fever of 100 at home. She is status post right total knee arthroplasty performed on June 17, 2017. She was discharged home on June 18, 2017. She is scheduled to start physical therapy tomorrow. She states she has been taking her pain medication. She is currently on aspirin 325 mg by mouth twice a day for DVT prophylaxis. She denies any new injury to the knee. Vital signs stable, afebrile Exam of the right lower extremity today shows the dressing to be intact. This is an Aquasol dressing and some pooling of blood is noted along the distal portion of the dressing. She does have moderate swelling throughout the knee. The dressing was removed. This shows incision site to be clean. There is a small amount of sanguinous drainage expressed from the lower portion of the wound. Motion is 0-60. She does have a small fracture blister noted near the incision. This is clear fluid-filled. She does have mild calf tenderness bilaterally.AT/EHL/gastroc 5/5. Sensation grossly intact. DP/PT pulses 2+. Venous Doppler of bilateral lower extremity was obtained. This was negative for DVT. Her white blood cell count was normal. She does have an elevated ESR and CRP which would be expected at this postoperative time. Blood cultures obtained in the emergency room are currently pending. At this time I recommended discharge home. She should continue with her home exercise program and physical therapy. She may continue with her usual postoperative pain management. We will plan on seeing her on Saturday for reevaluation. If her symptoms worsen over the weekend, she is advised to return to clinic or call.
[2017-06-20 11:23] VITALS: BP 147/71
== END 2017-06-20 11:20 | disposition home or self-care (01) ==
LOC: MW.ED 07:44
DX: G89.18 Other acute postprocedural pain (principal); M25.561 Pain in right knee; I10 Essential (primary) hypertension; E78.00 Pure hypercholesterolemia, unspecified; K21.9 Gastro-esophageal reflux disease without esophagitis; Z87.442 Personal history of urinary calculi; F41.9 Anxiety disorder, unspecified; F32.9 Major depressive disorder, single episode, unspecified; E11.9 Type 2 diabetes mellitus without complications; M19.90 Unspecified osteoarthritis, unspecified site; Z90.710 Acquired absence of both cervix and uterus; Z96.651 Presence of right artificial knee joint; Z90.49 Acquired absence of other specified parts of digestive tract; Z88.8 Allergy status to other drugs, medicaments and biological substances; Z88.2 Allergy status to sulfonamides; Z91.030 Bee allergy status; Z88.6 Allergy status to analgesic agent; Z79.82 Long term (current) use of aspirin; Z79.899 Other long term (current) drug therapy; Z79.84 Long term (current) use of oral hypoglycemic drugs
CPT/HCPCS: 36415; 80053; 81001; 85025; 85652; 86140; 87040; 93970; 96374; 99284; J2270; 93971-26-LT; 93971-26-RT; 99283

== ENCOUNTER 2017-08-06 19:22 | Emergency (ER) | payer MEDICARE ==
[2017-08-06] MEDS ORDERED: Sodium Chloride 0.9% 2.5 ML Syringe FLUSH PRN (19:42)
[2017-08-06] MEDS ORDERED: Sodium Chloride 0.9% 10 ML Syringe FLUSH PRN (19:42)
[2017-08-06] MEDS ORDERED: hydrALAZINE 20 MG/ML SDV IVPUSH ONE (19:45)
--- NOTE | 2017-08-06 19:45 | EDM.PDOC ---
ED HPI GENERAL MEDICAL PROBLEM - General Chief Complaint: General Stated Complaint: PT HAS HIGH BLOOD PRESSURE Time Seen by Provider: 08/06/17 19:35 - History of Present Illness INITIAL COMMENTS - FREE TEXT/NARRATIVE: HISTORY AND PHYSICAL: History of present illness: Patient is a 56-year-old white female with history of hypertension non-insulin- dependent diabetes and anxiety was had recent elevated blood pressure medications have been adjusted as of today she presents now with heavy monitor blood pressure noted to be above systolic 180 was informed that if that was the case to present to the ER she has no other significant symptoms she denies any chest pain shortness of breath nausea vomiting or other concerns. She states her Xanax that she was on for years was recently tapered and she does have appointment with mental health tomorrow Review of systems: As per history of present illness and below otherwise all systems reviewed and negative. Past medical history: As per history of present illness and as reviewed below otherwise noncontributory. Surgical history: As per history of present illness and as reviewed below otherwise noncontributory. Social history: No reported history of drug or alcohol abuse. Family history: As per history of present illness and as reviewed below otherwise noncontributory. Physical exam: HEENT: Atraumatic, normocephalic, pupils reactive, negative for conjunctival pallor or scleral icterus, mucous membranes moist, throat clear, neck supple, nontender, trachea midline. Lungs: Clear to auscultation, breath sounds equal bilaterally, chest nontender. Heart: S1S2, regular, negative for clicks, rubs, or JVD. Abdomen: Soft, nondistended, nontender. Negative for masses or hepatosplenomegaly. Negative for costovertebral tenderness. Pelvis: Stable nontender. Genitourinary: Deferred. Rectal: Deferred. Extremities: Atraumatic, negative for cords or calf pain. Neurovascular unremarkable. Neuro: Awake, alert, oriented. Cranial nerves II through XII unremarkable. Cerebellum unremarkable. Motor and sensory unremarkable throughout. Exam nonfocal. Diagnostics: CBC CMP chest x-ray EKG Therapeutics: Hydralazine 10 mg IV Impression: #1 hypertension #2 history of anxiety #3 history none. Diabetes Definitive disposition and diagnosis as appropriate pending reevaluation and review of above. head/neck Pain Score (Numeric/FACES): 5 - Related Data Allergies Allergy/AdvReac Type Severity Reaction Status Date / Time celecoxib [From Celebrex] Allergy Muscle Verified 08/06/17 19:38 Aches duloxetine [From Cymbalta] Allergy Muscle Verified 08/06/17 19:38 Aches pumpkin Allergy Nausea and Verified 08/06/17 19:38 Vomiting Sulfa (Sulfonamide Allergy Rash Verified 08/06/17 19:38 Antibiotics) tramadol [From Ultram] Allergy Hyperactivi Verified 08/06/17 19:38 ty bee stings Allergy Anaphylactic Uncoded 08/06/17 19:38 Shock gold Allergy Redness Uncoded 08/06/17 19:38 Home Meds: Home Meds Aspirin [[place] Aspirin] 81 mg PO DAILY 06/14/17 [History] Cetirizine HCl [Zyrtec] 10 mg PO DAILY 06/14/17 [History] ClonazePAM [KlonoPIN] 1 mg PO BID 06/14/17 [History] EPINEPHrine [Epipen] 1 injection SUBCUT ASDIRECTED PRN 06/14/17 [History] Escitalopram Oxalate 20 mg PO DAILY 06/14/17 [History] Ferrous Sulfate [Iron] 325 mg PO ASDIRECTED 06/14/17 [History] Hydrochlorothiazide 12.5 mg PO DAILY 06/14/17 [History] L.acidoph,Paracasei, B.lactis [Probiotic] 1 tab PO DAILY 06/14/17 [History] Lavender Oil [Lavender Fragrance Oil] 1 applic TOP ASDIRECTED 06/14/17 [History] Lisinopril 40 mg PO DAILY 06/14/17 [History] Meloxicam 15 mg PO DAILY 06/14/17 [History] Metoprolol Succinate 50 mg PO ASDIRECTED 06/14/17 [History] Mv-Mn/Folic Acid/Calcium/Vit K [Women's 50 Plus Daily Formula] 1 tab PO DAILY [History] Potassium Chloride 10 meq PO DAILY 06/14/17 [History] Pravastatin Sodium [Pravachol] 40 mg PO BEDTIME 06/14/17 [History] Turmeric/Turmeric Ext/Pepr Ext [Turmeric Complex 500 mg Cap] 1 tab PO BID [History] metFORMIN HCl [Metformin HCl] 500 mg PO BID 06/14/17 [History] Acetaminophen [Tylenol Extra Strength] 1,000 mg PO Q6H #100 tablet 06/18/17 [Rx] Aspirin 325 mg PO BID #90 tablet 06/18/17 [Rx] Docusate Sodium [Colace] 100 mg PO BID #60 cap 06/18/17 [Rx] oxyCODONE 5 - 10 mg PO Q4H PRN #80 tablet 06/18/17 [Rx] oxyCODONE ER [OxyCONTIN] 20 mg PO Q12HR #20 tab.er 06/18/17 [Rx] Past Medical History HEENT History: Reports: Allergic Rhinitis, Other (See Below) Other HEENT History: wears glasses Cardiovascular History: Reports: High Cholesterol, Hypertension Gastrointestinal History: Reports: GERD, Irritable Bowel Syndrome Other Gastrointestinal History: hx gastric ulcer, tested positive for hep C Genitourinary History: Reports: Renal Calculus [employer] History: Reports: Musculoskeletal History: Reports: Back Pain, Chronic, Fracture, Osteoarthritis Neurological History: Reports: Concussion Psychiatric History: Reports: Anxiety, Depression Endocrine/Metabolic History: Reports: Diabetes, Type II Hematologic History: Reports: Blood Transfusion(s) - Infectious Disease History Infectious Disease History: Reports: Hepatitis A, Hepatitis C, Measles - Past Surgical History Head Surgeries/Procedures: Reports: None GI Surgical History: Reports: Cholecystectomy Female Surgical History: Reports: Hysterectomy Musculoskeletal Surgical History: Reports: Knee Replacement, ORIF Other Musculoskeletal Surgeries/Procedures:: ORIF fx left femur, left TKA Social & Family History - Family History Family Medical History: Noncontributory - Tobacco Use Smoking Status *Q: Never Smoker - Caffeine Use Caffeine Use: Reports: None Caffeine Use Comment: Used rarely. - Recreational Drug Use Recreational Drug Use: No ED ROS GENERAL - Review of Systems Review Of Systems: ROS reveals no pertinent complaints other than HPI. ED EXAM, GENERAL - Physical Exam Exam: See Below (See dictation) Course - Vital Signs Last Recorded V/S: Last Vital Signs Temp 36.5 C 08/06/17 19:38 Pulse 87 08/06/17 20:43 Resp 18 08/06/17 20:43 BP 165/82 H 08/06/17 20:43 Pulse Ox 94 L 08/06/17 20:43 - Orders/Labs/Meds Orders: Active Orders 24 hr Category Date Time Status EKG 12 Lead [EKG Documentation Completion] [RC] ROUTINE Care 08/06/17 19:42 Active Chest 1V Frontal [CR] Stat Exams 08/06/17 19:40 Taken Sodium Chloride 0.9% [Saline Flush] Med 08/06/17 19:42 Active 10 ml FLUSH ASDIRECTED PRN Sodium Chloride 0.9% [Saline Flush] Med 08/06/17 19:42 Active 2.5 ml FLUSH ASDIRECTED PRN Saline Lock Insert [OM.PC] Stat Oth 08/06/17 19:42 Ordered Medication Orders Sodium Chloride (Saline Flush) 10 ml FLUSH ASDIRECTED PRN PRN Reason: Keep Vein Open Sodium Chloride (Saline Flush) 2.5 ml FLUSH ASDIRECTED PRN PRN Reason: Keep Vein Open Labs: Laboratory Tests 08/06/17 08/06/17 Range/Units 19:55 19:55 WBC 11.84 H (4.0-11.0) K/uL RBC 4.44 (4.30-5.90) M/uL Hgb 13.1 (12.0-16.0) g/dL Hct 38.8 (36.0-46.0) % MCV 87.4 (80.0-98.0) fL MCH 29.5 (27.0-32.0) pg MCHC 33.8 (31.0-37.0) g/dL RDW Std Deviation 45.2 (28.0-62.0) fl RDW Coeff of Bobbi 14 (11.0-15.0) % Plt Count 359 (150-400) K/uL MPV 9.20 (7.40-12.00) fL Neut % (Auto) 69.3 (48.0-80.0) % Lymph % (Auto) 20.6 (16.0-40.0) % [place] % (Auto) 7.8 (0.0-15.0) % Eos % (Auto) 2.0 (0.0-7.0) % Baso % (Auto) 0.3 (0.0-1.5) % Neut # (Auto) 8.2 H (1.4-5.7) K/uL Lymph # (Auto) 2.4 (0.6-2.4) K/uL [place] # (Auto) 0.9 H (0.0-0.8) K/uL Eos # (Auto) 0.2 (0.0-0.7) K/uL Baso # (Auto) 0.0 (0.0-0.1) K/uL Nucleated RBC % 0.0 /100WBC Nucleated RBCs # 0 K/uL Sodium 139 (136-146) mmol/L Potassium 3.2 L (3.5-5.1) mmol/L Chloride 101 (98-110) mmol/L Carbon Dioxide 23 (21-31) mmol/L BUN 14 (6.0-23.0) mg/dL Creatinine 0.8 (0.6-1.5) mg/dL Est Cr Clr Drug Dosing 75.45 mL/min Estimated GFR (MDRD) > 60.0 ml/min Glucose 123 H (60-110) mg/dL Calcium 10.1 (8.8-10.8) mg/dL Total Bilirubin 0.8 (0.1-1.5) mg/dL AST 19 (5-40) IU/L ALT 20 (8-54) IU/L Alkaline Phosphatase 124 (40-150) Total Protein 7.9 (6.0-8.0) g/dL Albumin 4.6 (3.5-5.0) g/dL Globulin 3.3 (2.0-3.5) g/dL Albumin/Globulin Ratio 1.4 (1.3-2.8) Meds: Medications Generic Name Dose Route Start Last Admin Trade Name Freq PRN Reason Stop Dose Admin Sodium Chloride 10 ml 08/06/17 19:42 Saline Flush FLUSH ASDIRECTED PRN Keep Vein Open Sodium Chloride 2.5 ml 08/06/17 19:42 Saline Flush FLUSH ASDIRECTED PRN Keep Vein Open Discontinued Medications Generic Name Dose Route Start Last Admin Trade Name Freq PRN Reason Stop Dose Admin Hydralazine HCl 10 mg 08/06/17 19:45 08/06/17 19:59 Apresoline IVPUSH 08/06/17 19:46 10 mg ONETIME ONE Administration Departure - Departure Time of Disposition: 20:45 Disposition: Home, Self-Care 01 Condition: Good Clinical Impression: Hypertension - Discharge Information Referrals: PCP,None [Primary Care Provider] - Forms: ED Department Discharge Additional Instructions: The following information is given to patients seen in the emergency department who are being discharged to home. This information is to outline your options for follow-up care. We provide all patients seen in our emergency department with a follow-up referral. The need for follow-up, as well as the timing and circumstances, are variable depending upon the specifics of your emergency department visit. If you don't have a primary care physician on staff, we will provide you with a referral. We always advise you to contact your personal physician following an emergency department visit to inform them of the circumstance of the visit and for follow-up with them and/or the need for any referrals to a consulting specialist. The emergency department will also refer you to a specialist when appropriate. This referral assures that you have the opportunity for followup care with a specialist. All of these measure are taken in an effort to provide you with optimal care, which includes your followup. Under all circumstances we always encourage you to contact your private physician who remains a resource for coordinating your care. When calling for followup care, please make the office aware that this follow-up is from your recent emergency room visit. If for any reason you are refused follow-up, please contact the [facility] emergency department at and asked to speak to the emergency department charge nurse. Continue current medications keep scheduled appointments follow private medical doctor in 1-2 days return as needed as discussed - My Orders Last 24 Hours: My Active Orders 08/06/17 19:40 Chest 1V Frontal [CR] Stat 08/06/17 19:42 EKG 12 Lead [EKG Documentation Completion] [RC] ROUTINE Sodium Chloride 0.9% [Saline Flush] 10 ml FLUSH ASDIRECTED PRN Sodium Chloride 0.9% [Saline Flush] 2.5 ml FLUSH ASDIRECTED PRN Saline Lock Insert [OM.PC] Stat - Assessment/Plan Last 24 Hours: My Active Orders 08/06/17 19:40 Chest 1V Frontal [CR] Stat 08/06/17 19:42 EKG 12 Lead [EKG Documentation Completion] [RC] ROUTINE Sodium Chloride 0.9% [Saline Flush] 10 ml FLUSH ASDIRECTED PRN Sodium Chloride 0.9% [Saline Flush] 2.5 ml FLUSH ASDIRECTED PRN Saline Lock Insert [OM.PC] Stat
[2017-08-06 20:26] LABS: CHLORIDE,CL 101 mmol/L (98-110); SODIUM,NA 139 mmol/L (136-146)
[2017-08-06 20:43] VITALS: BP 165/82
--- NOTE | 2017-08-07 13:53 | CR ---
EXAM DATE: 08/06/17 PATIENT'S AGE: 56 Patient: ROBERT DARLING Facility: [place], [place] Site . Site : 1960 Study: XRay Chest [id number]/7/2017 8:19:29 PM Ordering Physician: Ina Garza Final Report: INDICATION: Hypertension, headaches TECHNIQUE: Chest radiograph 1 view COMPARISON: 06/04/17 FINDINGS: Cardiovascular and mediastinum: The cardiac silhouette is normal in appearance and size. Mediastinum is within normal limits. Lungs and pleural spaces: Both lungs are unremarkable in appearance. No sign of pleural effusion. No pneumothorax is seen. Bones and soft tissues: No significant findings. IMPRESSION: 1. No acute cardiopulmonary disease seen. Dictated by: Glen Blood MD @ 08/06/2017 20:20:19 (Electronic Signature) Report Signed by Proxy. [facility] HOSPITALRekha
== END 2017-08-06 21:03 | disposition home or self-care (01) ==
LOC: MW.ED 19:22
DX: I10 Essential (primary) hypertension (principal); F41.9 Anxiety disorder, unspecified; E11.9 Type 2 diabetes mellitus without complications; E78.00 Pure hypercholesterolemia, unspecified; K21.9 Gastro-esophageal reflux disease without esophagitis; F32.9 Major depressive disorder, single episode, unspecified; Z79.84 Long term (current) use of oral hypoglycemic drugs; Z79.82 Long term (current) use of aspirin; Z79.899 Other long term (current) drug therapy; Z88.2 Allergy status to sulfonamides; Z88.5 Allergy status to narcotic agent; Z88.8 Allergy status to other drugs, medicaments and biological substances; Z91.030 Bee allergy status; Z91.048 Other nonmedicinal substance allergy status; I16.0 Hypertensive urgency
CPT/HCPCS: 36415; 71010; 80048; 80053; 82044; 85025; 93005; 96374; 99214; 99284; J0360

== ENCOUNTER 2017-08-09 15:20 | Observation (INO) | payer MEDICARE ==
[2017-08-09] MEDS ORDERED: Sodium Chloride 0.9% 10 ML Syringe FLUSH PRN (15:27)
[2017-08-09] MEDS ORDERED: Sodium Chloride 0.9% 2.5 ML Syringe FLUSH PRN (15:27)
[2017-08-09] MEDS ORDERED: Sodium Chloride 0.9% 1,000 ML IV ONE (15:34)
--- NOTE | 2017-08-09 15:36 | EDM.PDOC ---
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 Da Silva, 2 days ago for hypertension. The patient had her medications adjusted and had amlodipine 10 mg by mouth daily and labetalol 100 mg daily added to her regimen and she says that starting yesterday she was feeling some lightheadedness and generalized weakness and that today it worsened and she almost passed out. EMS was called and on their arrival she was very hypotensive with systolic in the 70s. The patient denies any headache chest pain or shortness of breath and no focal weakness or neurosensory changes. She did not fall today but she did have a brief episode where she passed out but her daughter caught her. Patient currently complains of generalized weakness but has no discomfort. She's had no fever chills upper respiratory symptoms or urinary complaints. The patient has not sterilely been eating and drinking as normal and she says that she normally has very loose stools and has one to 2 bowel movements today and today she sort he had 4. It is more watery than usual but it is not black or bloody. This loose stool is not necessarily new but today she has had more frequency. She says that she feels nauseated but has not had any vomiting. Review of systems: As per history of present illness and below otherwise all systems reviewed and negative. Past medical history: As per history of present illness and as reviewed below otherwise noncontributory. Surgical history: As per history of present illness and as reviewed below otherwise noncontributory. Social history: No reported history of drug or alcohol abuse. Family history: As per history of present illness and as reviewed below otherwise noncontributory. Physical exam: Gen.: Well-developed well-nourished female is nontoxic and speaking clearly in the ED. Vital signs have been reviewed by me. HEENT: Atraumatic, normocephalic, pupils reactive, negative for conjunctival pallor or scleral icterus, mucous membranes moist, throat clear, neck supple, nontender, trachea midline. Lungs: Clear to auscultation, breath sounds equal bilaterally, chest nontender. Heart: S1S2, regular, negative for clicks, rubs, or JVD. Abdomen: Soft, nondistended, nontender. Negative for masses or hepatosplenomegaly. Negative for costovertebral tenderness. Pelvis: Stable nontender. Genitourinary: Deferred. Rectal: Deferred. Extremities: Atraumatic, negative for cords or calf pain. Neurovascular unremarkable. Full range of motion without defects or deficits Neuro: Awake, alert, oriented. Cranial nerves II through XII unremarkable. Cerebellum unremarkable. Motor and sensory unremarkable throughout. Exam nonfocal. Diagnostics: EKG CBC CMP amylase lipase troponin chest x-ray orthostatic vitals UA lactic acid CT scan of the head urine culture blood culture 2 If patient passes a stool in the ED I will evaluate for possible study Therapeutics: IV O2 monitor IV fluids Zofran Zosyn 1527: Case was discussed with Dr. Da Silva, our high school music instructor, who recalls his visit with this patient 2 days ago. He is aware of the meds he added and he states that if the patient is cleared for discharge he would advise holding the labetalol and hydrochlorothiazide and he would check in with this patient on Saturday. 180: All testing results were discussed with the patient and the daughter at bedside. We were just able to obtain a urine sample but straight catheter as the patient was having difficulty giving us a sample. Patient has not had a bowel movement here to produce a stool sample. We will discuss this case with the hospitalist once we get the UA results. Overall the patient does feel better and doesn't feel lightheaded or dizzy but she is very concerned because of her blood pressure medicines being change in today's events. 1818: Case was discussed with our hospitalist Dr. Gomez; he agrees with observation admission on telemetry and would like a dose of Zosyn to be given. Impression: Hypotension, improved, recent blood pressure medication changes and additions, leukocytosis and lactic acidosis etiology unclear, clinical dehydration improving Definitive disposition and diagnosis as appropriate pending reevaluation and review of above. - Related Data Allergies Allergy/AdvReac Type Severity Reaction Status Date / Time celecoxib [From Celebrex] Allergy Muscle Verified 08/09/17 15:26 Aches duloxetine [From Cymbalta] Allergy Muscle Verified 08/09/17 15:26 Aches pumpkin Allergy Nausea and Verified 08/09/17 15:26 Vomiting Sulfa (Sulfonamide Allergy Rash Verified 08/09/17 15:26 Antibiotics) tramadol [From Ultram] Allergy Hyperactivi Verified 08/09/17 15:26 ty bee stings Allergy Anaphylactic Uncoded 08/06/17 19:38 Shock gold Allergy Redness Uncoded 08/06/17 19:38 Home Meds: Home Meds Aspirin [Ecotrin] 81 mg PO DAILY 08/09/17 [History] ClonazePAM [KlonoPIN] 1 mg PO DAILY 08/09/17 [History] Escitalopram [Lexapro] 20 mg PO DAILY 08/09/17 [History] Hydrochlorothiazide 12.5 mg PO DAILY 08/09/17 [History] Labetalol HCl [Labetalol] 100 mg PO BID 08/09/17 [History] Lisinopril [Zestril] 40 mg PO DAILY 08/09/17 [History] Meloxicam 15 mg PO DAILY 08/09/17 [History] Potassium Chloride 10 mg PO DAILY 08/09/17 [History] Pravastatin Sodium [Pravastatin (Pravachol)] 40 mg PO BEDTIME 08/09/17 [History] amLODIPine [Norvasc] 10 mg PO DAILY 08/09/17 [History] metFORMIN [Glucophage XR] 500 mg PO BID 08/09/17 [History] Past Medical History HEENT History: Reports: Allergic Rhinitis, Other (See Below) Other HEENT History: wears glasses Cardiovascular History: Reports: High Cholesterol, Hypertension Respiratory History: Reports: None Gastrointestinal History: Reports: GERD, Irritable Bowel Syndrome Other Gastrointestinal History: hx gastric ulcer, tested positive for hep C Genitourinary History: Reports: Renal Calculus 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: Musculoskeletal History: Reports: Back Pain, Chronic, Fracture, Osteoarthritis Neurological History: Reports: Concussion Psychiatric History: Reports: Anxiety, Depression Endocrine/Metabolic History: Reports: Diabetes, Type II Hematologic History: Reports: Blood Transfusion(s) Immunologic History: Reports: None Oncologic (Cancer) History: Reports: None Dermatologic History: Reports: None - Infectious Disease History Infectious Disease History: Reports: Hepatitis A, Hepatitis C - Past Surgical History Head Surgeries/Procedures: Reports: None Respiratory Surgical History: Reports: None GI Surgical History: Reports: Cholecystectomy Female Surgical History: Reports: Hysterectomy Musculoskeletal Surgical History: Reports: Knee Replacement, ORIF Other Musculoskeletal Surgeries/Procedures:: ORIF fx left femur, left TKA Social & Family History - Family History Family Medical History: Noncontributory - Tobacco Use Smoking Status *Q: Never Smoker - Caffeine Use Caffeine Use: Reports: Soda Caffeine Use Comment: Used rarely. - Recreational Drug Use Recreational Drug Use: No ED ROS GENERAL - Review of Systems Review Of Systems: ROS reveals no pertinent complaints other than HPI. ED EXAM, GENERAL - Physical Exam Exam: See Below (See dictation) Course - Vital Signs Last Recorded V/S: Last Vital Signs Temp 36.1 C 08/09/17 15:26 Pulse 97 08/09/17 17:10 Resp 18 08/09/17 17:10 BP 118/57 L 08/09/17 17:10 Pulse Ox 97 08/09/17 17:10 Orthostatic Blood Pressure [ 88/48 Standing] Orthostatic Blood Pressure [ 99/57 Sitting] Orthostatic Blood Pressure [ 109/55 Supine] - Orders/Labs/Meds Orders: Active Orders 24 hr Category Date Time Status Patient Status [ADT] Stat ADT 08/09/17 18:17 Ordered Cardiac Monitoring [RC] . DIRECTED Care 08/09/17 15:27 Active Communication Order [RC] STAT Care 08/09/17 15:33 Active EKG Documentation Completion [RC] STAT Care 08/09/17 15:27 Active Orthostatic Vital Signs [RC] ASDIRECTED Care 08/09/17 15:36 Active Oxygen Therapy, ED [RC] ASDIRECTED Care 08/09/17 15:27 Active Pulse Oximetry [RC] ASDIRECTED Care 08/09/17 15:27 Active Chest 1V Frontal [CR] Stat Exams 08/09/17 15:34 Taken Head wo Cont [CT] Stat Exams 08/09/17 15:41 Taken CULTURE BLOOD [BC] Stat Lab 08/09/17 16:40 Received CULTURE BLOOD [BC] Stat Lab 08/09/17 17:16 Received CULTURE URINE [RM] Stat Lab 08/09/17 17:53 Received Sodium Chloride 0.9% [Normal Saline] 1,000 ml Med 08/09/17 17:45 Active IV ASDIRECTED Sodium Chloride 0.9% [Saline Flush] Med 08/09/17 15:27 Active 10 ml FLUSH ASDIRECTED PRN Sodium Chloride 0.9% [Saline Flush] Med 08/09/17 15:27 Active 2.5 ml FLUSH ASDIRECTED PRN Blood Culture x2 Reflex Set [OM.PC] Stat Oth 08/09/17 16:25 Ordered Saline Lock Insert [OM.PC] Stat Oth 08/09/17 15:27 Ordered Medication Orders Sodium Chloride (Normal Saline) 1,000 mls @ 125 mls/hr IV ASDIRECTED ALICIA Last Admin: 08/09/17 18:00 Dose: 125 mls/hr Sodium Chloride (Saline Flush) 10 ml FLUSH ASDIRECTED PRN PRN Reason: Keep Vein Open Last Admin: 08/09/17 15:49 Dose: 10 ml Sodium Chloride (Saline Flush) 2.5 ml FLUSH ASDIRECTED PRN PRN Reason: Keep Vein Open Last Admin: 08/09/17 15:49 Dose: 2.5 ml Labs: Laboratory Tests 08/09/17 08/09/17 08/09/17 Range/Units 15:54 15:54 15:54 WBC 16.93 H (4.0-11.0) K/uL RBC 4.20 L (4.30-5.90) M/uL Hgb 12.4 (12.0-16.0) g/dL Hct 37.0 (36.0-46.0) % MCV 88.1 (80.0-98.0) fL MCH 29.5 (27.0-32.0) pg MCHC 33.5 (31.0-37.0) g/dL RDW Std Deviation 46.2 (28.0-62.0) fl RDW Coeff of Bobbi 14 (11.0-15.0) % Plt Count 322 (150-400) K/uL MPV 9.10 (7.40-12.00) fL Neut % (Auto) 76.5 (48.0-80.0) % Lymph % (Auto) 12.2 L (16.0-40.0) % [place] % (Auto) 10.2 (0.0-15.0) % Eos % (Auto) 0.9 (0.0-7.0) % Baso % (Auto) 0.2 (0.0-1.5) % Neut # (Auto) 13.0 H (1.4-5.7) K/uL Lymph # (Auto) 2.1 (0.6-2.4) K/uL [place] # (Auto) 1.7 H (0.0-0.8) K/uL Eos # (Auto) 0.2 (0.0-0.7) K/uL Baso # (Auto) 0.0 (0.0-0.1) K/uL Nucleated RBC % 0.0 /100WBC Nucleated RBCs # 0 K/uL Lactate 4.7 H (0.20-2.00) mmol/L Sodium 140 (136-146) mmol/L Potassium 3.1 L (3.5-5.1) mmol/L Chloride 101 (98-110) mmol/L Carbon Dioxide 23 (21-31) mmol/L BUN 18 (6.0-23.0) mg/dL Creatinine 1.5 (0.6-1.5) mg/dL Est Cr Clr Drug Dosing 40.24 mL/min Estimated GFR (MDRD) 35.8 ml/min Glucose 116 H (60-110) mg/dL Calcium 9.8 (8.8-10.8) mg/dL Total Bilirubin 0.8 (0.1-1.5) mg/dL AST 38 (5-40) IU/L ALT 32 (8-54) IU/L Alkaline Phosphatase 120 (40-150) Troponin I < 0.10 (0.0-0.29) NG/ML Total Protein 7.1 (6.0-8.0) g/dL Albumin 4.2 (3.5-5.0) g/dL Globulin 2.9 (2.0-3.5) g/dL Albumin/Globulin Ratio 1.4 (1.3-2.8) Amylase 73 (10-90) U/L Lipase 115 H (7-80) U/L Urine Color Urine Appearance Urine pH (5.0-8.0) Ur Specific [place] (1.001-1.035) Urine Protein (NEGATIVE) mg/dL Urine Glucose (UA) (NEGATIVE) mg/dL Urine Ketones (NEGATIVE) mg/dL Urine Occult Blood (NEGATIVE) Urine Nitrite (NEGATIVE) Urine Bilirubin (NEGATIVE) Urine Ictotest Urine Urobilinogen (<2.0) EU/dL Ur Leukocyte Esterase (NEGATIVE) Urine RBC (0-2/HPF) Urine WBC (0-5/HPF) Ur Epithelial Cells (NONE-FEW) Amorphous Sediment (NEGATIVE) Urine Bacteria (NEGATIVE) 08/09/17 Range/Units 17:53 WBC (4.0-11.0) K/uL RBC (4.30-5.90) M/uL Hgb (12.0-16.0) g/dL Hct (36.0-46.0) % MCV (80.0-98.0) fL MCH (27.0-32.0) pg MCHC (31.0-37.0) g/dL RDW Std Deviation (28.0-62.0) fl RDW Coeff of Bobbi (11.0-15.0) % Plt Count (150-400) K/uL MPV (7.40-12.00) fL Neut % (Auto) (48.0-80.0) % Lymph % (Auto) (16.0-40.0) % [place] % (Auto) (0.0-15.0) % Eos % (Auto) (0.0-7.0) % Baso % (Auto) (0.0-1.5) % Neut # (Auto) (1.4-5.7) K/uL Lymph # (Auto) (0.6-2.4) K/uL [place] # (Auto) (0.0-0.8) K/uL Eos # (Auto) (0.0-0.7) K/uL Baso # (Auto) (0.0-0.1) K/uL Nucleated RBC % /100WBC Nucleated RBCs # K/uL Lactate (0.20-2.00) mmol/L Sodium (136-146) mmol/L Potassium (3.5-5.1) mmol/L Chloride (98-110) mmol/L Carbon Dioxide (21-31) mmol/L BUN (6.0-23.0) mg/dL Creatinine (0.6-1.5) mg/dL Est Cr Clr Drug Dosing mL/min Estimated GFR (MDRD) ml/min Glucose (60-110) mg/dL Calcium (8.8-10.8) mg/dL Total Bilirubin (0.1-1.5) mg/dL AST (5-40) IU/L ALT (8-54) IU/L Alkaline Phosphatase (40-150) Troponin I (0.0-0.29) NG/ML Total Protein (6.0-8.0) g/dL Albumin (3.5-5.0) g/dL Globulin (2.0-3.5) g/dL Albumin/Globulin Ratio (1.3-2.8) Amylase (10-90) U/L Lipase (7-80) U/L Urine Color YELLOW Urine Appearance HAZY Urine pH 5.5 (5.0-8.0) Ur Specific [place] >= 1.030 (1.001-1.035) Urine Protein 100 (NEGATIVE) mg/dL Urine Glucose (UA) NEGATIVE (NEGATIVE) mg/dL Urine Ketones TRACE H (NEGATIVE) mg/dL Urine Occult Blood TRACE-INTACT (NEGATIVE) Urine Nitrite NEGATIVE (NEGATIVE) Urine Bilirubin MODERATE H (NEGATIVE) Urine Ictotest NEGATIVE Urine Urobilinogen 0.2 (<2.0) EU/dL Ur Leukocyte Esterase NEGATIVE (NEGATIVE) Urine RBC 0-3 (0-2/HPF) Urine WBC 0-4 (0-5/HPF) Ur Epithelial Cells FEW (NONE-FEW) Amorphous Sediment MODERATE (NEGATIVE) Urine Bacteria FEW (NEGATIVE) Meds: Medications Generic Name Dose Route Start Last Admin Trade Name Freq PRN Reason Stop Dose Admin Sodium Chloride 1,000 mls @ 125 mls/hr 08/09/17 17:45 08/09/17 18:00 Normal Saline IV 125 mls/hr ASDIRECTED ALICIA Administration Sodium Chloride 10 ml 08/09/17 15:27 08/09/17 15:49 Saline Flush FLUSH 10 ml ASDIRECTED PRN Administration Keep Vein Open Sodium Chloride 2.5 ml 08/09/17 15:27 08/09/17 15:49 Saline Flush FLUSH 2.5 ml ASDIRECTED PRN Administration Keep Vein Open Discontinued Medications Generic Name Dose Route Start Last Admin Trade Name Freq PRN Reason Stop Dose Admin Sodium Chloride 1,000 mls @ 999 mls/hr 08/09/17 15:34 08/09/17 15:48 Normal Saline IV 08/09/17 16:34 999 mls/hr STAT ONE Administration Ondansetron HCl 4 mg 08/09/17 15:39 08/09/17 15:49 Zofran IVPUSH 08/09/17 15:40 4 mg ONETIME ONE Administration Potassium Chloride 40 meq 08/09/17 18:16 Klor-Con M20 PO 08/09/17 18:17 ONETIME ONE Departure - Departure Time of Disposition: 18:22 Disposition: Refer to Observation Condition: Good Clinical Impression: Lactic acidosis Hypotension Qualifiers: Hypotension type: unspecified hypotension type Qualified Code(s): I95.9 - Hypotension, unspecified Leukocytosis Qualifiers: Leukocytosis type: unspecified Qualified Code(s): D72.829 - Elevated white blood cell count, unspecified - Discharge Information Referrals: PCP,None [Primary Care Provider] - Forms: ED Department Discharge - My Orders Last 24 Hours: My Active Orders 08/09/17 15:27 Cardiac Monitoring [RC] . DIRECTED EKG Documentation Completion [RC] STAT Oxygen Therapy, ED [RC] ASDIRECTED Pulse Oximetry [RC] ASDIRECTED Sodium Chloride 0.9% [Saline Flush] 10 ml FLUSH ASDIRECTED PRN Sodium Chloride 0.9% [Saline Flush] 2.5 ml FLUSH ASDIRECTED PRN Saline Lock Insert [OM.PC] Stat 08/09/17 15:33 Communication Order [RC] STAT 08/09/17 15:34 Chest 1V Frontal [CR] Stat 08/09/17 15:36 Orthostatic Vital Signs [RC] ASDIRECTED 08/09/17 15:41 Head wo Cont [CT] Stat 08/09/17 16:25 Blood Culture x2 Reflex Set [OM.PC] Stat 08/09/17 16:40 CULTURE BLOOD [BC] Stat 08/09/17 17:16 CULTURE BLOOD [BC] Stat 08/09/17 17:45 Sodium Chloride 0.9% [Normal Saline] 1,000 ml IV ASDIRECTED 08/09/17 17:53 CULTURE URINE [RM] Stat 08/09/17 18:17 Patient Status [ADT] Stat - Assessment/Plan Last 24 Hours: My Active Orders 08/09/17 15:27 Cardiac Monitoring [RC] . DIRECTED EKG Documentation Completion [RC] STAT Oxygen Therapy, ED [RC] ASDIRECTED Pulse Oximetry [RC] ASDIRECTED Sodium Chloride 0.9% [Saline Flush] 10 ml FLUSH ASDIRECTED PRN Sodium Chloride 0.9% [Saline Flush] 2.5 ml FLUSH ASDIRECTED PRN Saline Lock Insert [OM.PC] Stat 08/09/17 15:33 Communication Order [RC] STAT 08/09/17 15:34 Chest 1V Frontal [CR] Stat 08/09/17 15:36 Orthostatic Vital Signs [RC] ASDIRECTED 08/09/17 15:41 Head wo Cont [CT] Stat 08/09/17 16:25 Blood Culture x2 Reflex Set [OM.PC] Stat 08/09/17 16:40 CULTURE BLOOD [BC] Stat 08/09/17 17:16 CULTURE BLOOD [BC] Stat 08/09/17 17:45 Sodium Chloride 0.9% [Normal Saline] 1,000 ml IV ASDIRECTED 08/09/17 17:53 CULTURE URINE [RM] Stat 08/09/17 18:17 Patient Status [ADT] Stat
[2017-08-09] MEDS ORDERED: Ondansetron 4 MG/2 ML SDV IVPUSH ONE (15:39)
[2017-08-09 16:39] LABS: CHLORIDE,CL 101 mmol/L (98-110); SODIUM,NA 140 mmol/L (136-146)
[2017-08-09] MEDS: Sodium Chloride 0.9% 1,000 ML IV SCH (18:00)
[2017-08-09] MEDS ORDERED: Potassium Chloride 20 MEQ Tab.ER PO ONE (18:16)
[2017-08-09] MEDS ORDERED: Piperacillin/Tazobactam 3.375 GM in Sodium Chloride 0.9% 50 ML IV ONE (18:24)
--- NOTE | 2017-08-09 19:32 | PCM.HP ---
H&P History of Present Illness - General Date of Service: 08/09/17 Source of Information: Patient, Old Records, Provider - History of Present Illness Initial Comments - Free Text/Narative: She presented to the ED with a history of weakness and dyspnea today. She was brought to the ED by EMS and noted to have a systolic blood pressure of 70 mm Hg initially. She was fluid resuscitated in the ED and was started on zosyn because of an elevated lactated and elevated WBC despite no focalizing symptoms of infection. She has been on metformin. - Related Data Allergies/Adverse Reactions: Allergies Allergy/AdvReac Type Severity Reaction Status Date / Time celecoxib [From Celebrex] Allergy Muscle Verified 08/09/17 15:26 Aches duloxetine [From Cymbalta] Allergy Muscle Verified 08/09/17 15:26 Aches pumpkin Allergy Nausea and Verified 08/09/17 15:26 Vomiting Sulfa (Sulfonamide Allergy Rash Verified 08/09/17 15:26 Antibiotics) tramadol [From Ultram] Allergy Hyperactivi Verified 08/09/17 15:26 ty bee stings Allergy Anaphylactic Uncoded 08/06/17 19:38 Shock gold Allergy Redness Uncoded 08/06/17 19:38 Home Medications: Home Meds Aspirin [Ecotrin] 81 mg PO DAILY 08/09/17 [History] ClonazePAM [KlonoPIN] 1 mg PO DAILY 08/09/17 [History] Escitalopram [Lexapro] 20 mg PO DAILY 08/09/17 [History] Hydrochlorothiazide 12.5 mg PO DAILY 08/09/17 [History] Labetalol HCl [Labetalol] 100 mg PO BID 08/09/17 [History] Lisinopril [Zestril] 40 mg PO DAILY 08/09/17 [History] Meloxicam 15 mg PO DAILY 08/09/17 [History] Potassium Chloride 10 mg PO DAILY 08/09/17 [History] Pravastatin Sodium [Pravastatin (Pravachol)] 40 mg PO BEDTIME 08/09/17 [History] amLODIPine [Norvasc] 10 mg PO DAILY 08/09/17 [History] metFORMIN [Glucophage XR] 500 mg PO BID 08/09/17 [History] Past Medical History HEENT History: Reports: Allergic Rhinitis, Other (See Below) Other HEENT History: wears glasses Cardiovascular History: Reports: High Cholesterol, Hypertension Respiratory History: Reports: None Gastrointestinal History: Reports: GERD, Irritable Bowel Syndrome Other Gastrointestinal History: hx gastric ulcer, tested positive for hep C Genitourinary History: Reports: Renal Calculus 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: Musculoskeletal History: Reports: Back Pain, Chronic, Fracture, Osteoarthritis Neurological History: Reports: Concussion Psychiatric History: Reports: Anxiety, Depression Endocrine/Metabolic History: Reports: Diabetes, Type II Hematologic History: Reports: Blood Transfusion(s) Immunologic History: Reports: None Oncologic (Cancer) History: Reports: None Dermatologic History: Reports: None - Infectious Disease History Infectious Disease History: Reports: Hepatitis A, Hepatitis C - Past Surgical History Head Surgeries/Procedures: Reports: None Respiratory Surgical History: Reports: None GI Surgical History: Reports: Cholecystectomy Female Surgical History: Reports: Hysterectomy Musculoskeletal Surgical History: Reports: Knee Replacement, ORIF Other Musculoskeletal Surgeries/Procedures:: ORIF fx left femur, left TKA Social & Family History - Family History Family Medical History: Noncontributory - Tobacco Use Smoking Status *Q: Never Smoker Second Hand Smoke Exposure: Yes - Caffeine Use Caffeine Use: Reports: Soda Caffeine Use Comment: Used rarely. - Recreational Drug Use Recreational Drug Use: No H&P Review of Systems - Review of Systems: Review Of Systems: See Below General: Denies: Fever HEENT: Denies: Sore Throat Pulmonary: Reports: Shortness of Breath (better after fluid resuscitation). Denies: Cough Cardiovascular: Denies: Chest Pain Gastrointestinal: Reports: Diarrhea (but she has a long history of intermittent diarrhea which she thought might be related to IBS), Nausea. Denies: Abdominal Pain, Black Stool, Bloody Stool, Hematemesis, Hematochezia Genitourinary: Reports: Hematuria (occasional gross hematuria which she relates to a prior kidney stone; she did not have hematuria today.). Denies: Dysuria Skin: Denies: Cyanosis Exam - Exam Exam: See Below - Vital Signs Vital Signs: Last Vital Signs Temp 98.4 F 08/09/17 18:41 Pulse 100 08/09/17 18:41 Resp 18 08/09/17 18:41 BP 129/64 08/09/17 18:41 Pulse Ox 96 08/09/17 18:41 Weight: 80.5 kg - Exam General: Alert, Oriented, Cooperative HEENT: EOMI, Mucosa Moist & [place] Neck: Supple Lungs: Clear to Auscultation. No: Crackles, Rales, Rhonchi Cardiovascular: Regular Rate, Regular Rhythm GI/Abdominal Exam: Soft, Non-Tender (Female) Exam: Deferred Rectal (Female) Exam: Deferred Extremities: Non-Tender, No Pedal Edema. No: Slow Capillary Refill Neurological: Cranial Nerves Intact, Normal Speech Neuro Extensive - Mental Status: Alert, Oriented x3 Neuro Extensive - Motor, Sensory, Reflexes: CN II-XII Intact - Patient Data Result Diagrams: 08/09/17 15:54 08/09/17 15:54 *Q Meaningful Use (ADM) - VTE *Q VTE Criteria *Q: - Stroke *Q Stroke Criteria *Q: - AMI *Q AMI Criteria *Q: - Problem List (1) Hypotension SNOMED Code(s): 91020494 ICD Code: I95.9 - HYPOTENSION, UNSPECIFIED Status: Acute Current Visit: Yes Qualifiers: Hypotension type: unspecified hypotension type Qualified Code(s): I95.9 - Hypotension, unspecified (2) Lactic acidosis SNOMED Code(s): 91846117 ICD Code: E87.2 - ACIDOSIS Status: Acute Current Visit: Yes (3) Leukocytosis SNOMED Code(s): 307307361 ICD Code: D72.829 - ELEVATED WHITE BLOOD CELL COUNT, UNSPECIFIED Status: Acute Current Visit: Yes Qualifiers: Leukocytosis type: unspecified Qualified Code(s): D72.829 - Elevated white blood cell count, unspecified (4) Diabetes mellitus SNOMED Code(s): 23744699 ICD Code: E11.9 - TYPE 2 DIABETES MELLITUS WITHOUT COMPLICATIONS Status: Acute Current Visit: No (5) History of chronic hypertension SNOMED Code(s): 774933828 ICD Code: Z86.79 - PERSONAL HISTORY OF OTHER DISEASES OF THE CIRCULATORY SYSTEM Status: Acute Current Visit: No Problem List Initiated/Reviewed/Updated: Yes Orders Last 24hrs: Medication Orders Sodium Chloride (Normal Saline) 1,000 mls @ 125 mls/hr IV ASDIRECTED ALICIA Last Admin: 08/09/17 18:00 Dose: 125 mls/hr Sodium Chloride (Saline Flush) 10 ml FLUSH ASDIRECTED PRN PRN Reason: Keep Vein Open Last Admin: 08/09/17 15:49 Dose: 10 ml Sodium Chloride (Saline Flush) 2.5 ml FLUSH ASDIRECTED PRN PRN Reason: Keep Vein Open Last Admin: 08/09/17 15:49 Dose: 2.5 ml Assessment/Plan Comment:: admit see orders hold antihypertensives antibiotics pending cultures hold metformin Damian Gomez MD
[2017-08-09] MEDS ORDERED: Ondansetron 4 MG Tab.DIS PO PRN (19:35)
[2017-08-09] MEDS ORDERED: Temazepam 15 MG Cap PO PRN (19:35)
[2017-08-09] MEDS: Insulin Aspart 100 Units/ML 3 ML Pen SUBCUT SCH (20:07)
[2017-08-09] MEDS: Pravastatin 40 MG Tab PO SCH (21:01)
[2017-08-09] MEDS: Acetaminophen/HYDROcodone 325-5 MG Tab PO PRN (21:01)
[2017-08-09] MEDS: ClonazePAM 1 MG Tab PO PRN (21:01)
[2017-08-10] MEDS: Piperacillin/Tazobactam 3.375 GM in Sodium Chloride 0.9% 50 ML IV SCH ×2 (00:01→06:01)
[2017-08-10] MEDS: Sodium Chloride 0.9% 1,000 ML IV SCH ×3 (00:05→13:21)
[2017-08-10] MEDS: Acetaminophen/HYDROcodone 325-5 MG Tab PO PRN ×3 (03:22→20:43)
[2017-08-10 05:34] LABS: CHLORIDE,CL 109 mmol/L (98-110); SODIUM,NA 138 mmol/L (136-146)
[2017-08-10] MEDS: Insulin Aspart 100 Units/ML 3 ML Pen SUBCUT SCH ×4 (06:30→21:47)
[2017-08-10] MEDS: Escitalopram 10 MG Tab PO SCH (09:35)
[2017-08-10] MEDS: Acetaminophen 325 MG Tab PO PRN (09:35)
[2017-08-10] MEDS: Aspirin 81 MG Tab.EC PO SCH (09:35)
[2017-08-10] MEDS ORDERED: Potassium Chloride 20 MEQ Tab.ER PO ONE ×2 (10:47→18:00)
--- NOTE | 2017-08-10 10:58 | PCM.PN ---
- General Info Date of Service: 08/10/17 Subjective Update: She is without specific complaint this morning. She feels better. pharmaceutical DVT prophylaxis not ordered as she has had intermittent urinary tract bleeding. - Patient Data Vitals - Most Recent: Last Vital Signs Temp 97.7 F 08/10/17 08:00 Pulse 96 08/10/17 08:00 Resp 18 08/10/17 08:00 BP 121/54 L 08/10/17 08:00 Pulse Ox 97 08/10/17 08:00 Weight - Most Recent: 80.5 kg I&O - Last 24 Hours: Intake & Output 08/09/17 08/10/17 08/10/17 22:59 06:59 14:59 Intake Total 2684 Output Total 700 Balance 1984 Lab Results Last 24 Hours: Laboratory Results - last 24 hr 08/09/17 08/10/17 08/10/17 Range/Units 19:31 04:57 04:57 WBC 6.78 (4.0-11.0) K/uL RBC 3.57 L (4.30-5.90) M/uL Hgb 10.5 L (12.0-16.0) g/dL Hct 31.8 L (36.0-46.0) % MCV 89.1 (80.0-98.0) fL MCH 29.4 (27.0-32.0) pg MCHC 33.0 (31.0-37.0) g/dL RDW Std Deviation 46.8 (28.0-62.0) fl RDW Coeff of Bobbi 14 (11.0-15.0) % Plt Count 270 (150-400) K/uL MPV 8.80 (7.40-12.00) fL Neut % (Auto) 58.6 (48.0-80.0) % Lymph % (Auto) 28.2 (16.0-40.0) % [place] % (Auto) 9.9 (0.0-15.0) % Eos % (Auto) 2.9 (0.0-7.0) % Baso % (Auto) 0.4 (0.0-1.5) % Neut # (Auto) 4.0 (1.4-5.7) K/uL Lymph # (Auto) 1.9 (0.6-2.4) K/uL [place] # (Auto) 0.7 (0.0-0.8) K/uL Eos # (Auto) 0.2 (0.0-0.7) K/uL Baso # (Auto) 0.0 (0.0-0.1) K/uL Nucleated RBC % 0.0 /100WBC Nucleated RBCs # 0 K/uL Lactate 1.8 (0.20-2.00) mmol/L Sodium (136-146) mmol/L Potassium (3.5-5.1) mmol/L Chloride (98-110) mmol/L Carbon Dioxide (21-31) mmol/L BUN (6.0-23.0) mg/dL Creatinine (0.6-1.5) mg/dL Est Cr Clr Drug Dosing mL/min Estimated GFR (MDRD) ml/min Glucose (60-110) mg/dL POC Glucose 88 (60-110) mg/dL Calcium (8.8-10.8) mg/dL Magnesium (1.5-2.3) mEq/L Total Bilirubin (0.1-1.5) mg/dL AST (5-40) IU/L ALT (8-54) IU/L Alkaline Phosphatase (40-150) Total Protein (6.0-8.0) g/dL Albumin (3.5-5.0) g/dL Globulin (2.0-3.5) g/dL Albumin/Globulin Ratio (1.3-2.8) 08/10/17 08/10/17 Range/Units 04:57 05:59 WBC (4.0-11.0) K/uL RBC (4.30-5.90) M/uL Hgb (12.0-16.0) g/dL Hct (36.0-46.0) % MCV (80.0-98.0) fL MCH (27.0-32.0) pg MCHC (31.0-37.0) g/dL RDW Std Deviation (28.0-62.0) fl RDW Coeff of Bobbi (11.0-15.0) % Plt Count (150-400) K/uL MPV (7.40-12.00) fL Neut % (Auto) (48.0-80.0) % Lymph % (Auto) (16.0-40.0) % [place] % (Auto) (0.0-15.0) % Eos % (Auto) (0.0-7.0) % Baso % (Auto) (0.0-1.5) % Neut # (Auto) (1.4-5.7) K/uL Lymph # (Auto) (0.6-2.4) K/uL [place] # (Auto) (0.0-0.8) K/uL Eos # (Auto) (0.0-0.7) K/uL Baso # (Auto) (0.0-0.1) K/uL Nucleated RBC % /100WBC Nucleated RBCs # K/uL Lactate (0.20-2.00) mmol/L Sodium 138 (136-146) mmol/L Potassium 3.0 L (3.5-5.1) mmol/L Chloride 109 (98-110) mmol/L Carbon Dioxide 21 (21-31) mmol/L BUN 13 (6.0-23.0) mg/dL Creatinine 0.8 (0.6-1.5) mg/dL Est Cr Clr Drug Dosing 75.45 mL/min Estimated GFR (MDRD) > 60.0 ml/min Glucose 104 (60-110) mg/dL POC Glucose 99 (60-110) mg/dL Calcium 8.2 L (8.8-10.8) mg/dL Magnesium 1.2 L (1.5-2.3) mEq/L Total Bilirubin 0.9 (0.1-1.5) mg/dL AST 26 (5-40) IU/L ALT 27 (8-54) IU/L Alkaline Phosphatase 95 (40-150) Total Protein 5.8 L (6.0-8.0) g/dL Albumin 3.5 (3.5-5.0) g/dL Globulin 2.3 (2.0-3.5) g/dL Albumin/Globulin Ratio 1.5 (1.3-2.8) Lopez Results Last 24 Hours: Microbiology 08/10/17 03:10 Stool Occult Blood (LOPEZ) - Final Stool / Feces NEGATIVE OCCULT BLOOD Med Orders - Current: Current Medications Acetaminophen (Tylenol) 650 mg PO Q4H PRN PRN Reason: Pain (Mild 1-3)/fever Last Admin: 08/10/17 09:35 Dose: 650 mg Hydrocodone Bitart/Acetaminophen ([place] 325-5 Mg) 1 tab PO Q6HR PRN PRN Reason: Pain Last Admin: 08/10/17 03:22 Dose: 1 tab Aspirin (Halfprin) 81 mg PO DAILY [facility] Last Admin: 08/10/17 09:35 Dose: 81 mg Clonazepam (Klonopin) 1 mg PO TID PRN PRN Reason: Anxiety Last Admin: 08/09/17 21:01 Dose: 1 mg Escitalopram Oxalate (Lexapro) 20 mg PO DAILY [facility] Last Admin: 08/10/17 09:35 Dose: 20 mg Sodium Chloride (Normal Saline) 1,000 mls @ 150 mls/hr IV ASDIRECTED [facility] Last Admin: 08/10/17 06:38 Dose: 150 mls/hr Piperacillin Sod/Tazobactam (Sod 3.375 gm/ Sodium Chloride) 50 mls @ 100 mls/ hr IV Q6H [facility] Last Admin: 08/10/17 06:01 Dose: 100 mls/hr Insulin Aspart (Novolog) 0 unit SUBCUT ACBED [facility] PRN Reason: Protocol Last Admin: 08/10/17 06:30 Dose: Not Given Ondansetron HCl (Zofran Odt) 4 mg PO Q4H PRN PRN Reason: nausea, able to take PO Potassium Chloride (Klor-Con M20) 40 meq PO ONETIME ONE Stop: 08/10/17 18:01 Pravastatin Sodium (Pravachol) 40 mg PO BEDTIME [facility] Last Admin: 08/09/17 21:01 Dose: 40 mg Sodium Chloride (Saline Flush) 10 ml FLUSH ASDIRECTED PRN PRN Reason: Keep Vein Open Last Admin: 08/09/17 15:49 Dose: 10 ml Sodium Chloride (Saline Flush) 2.5 ml FLUSH ASDIRECTED PRN PRN Reason: Keep Vein Open Last Admin: 08/09/17 15:49 Dose: 2.5 ml Temazepam (Restoril) 15 mg PO BEDTIME PRN PRN Reason: Sleep Discontinued Medications Sodium Chloride (Normal Saline) 1,000 mls @ 999 mls/hr IV STAT ONE Stop: 08/09/17 16:34 Last Admin: 08/09/17 15:48 Dose: 999 mls/hr Piperacillin Sod/Tazobactam (Sod 3.375 gm/ Sodium Chloride) 50 mls @ 100 mls/ hr IV ONETIME ONE Stop: 08/09/17 18:53 Last Admin: 08/09/17 18:30 Dose: 100 mls/hr Ondansetron HCl (Zofran) 4 mg IVPUSH ONETIME ONE Stop: 08/09/17 15:40 Last Admin: 08/09/17 15:49 Dose: 4 mg Potassium Chloride (Klor-Con M20) 40 meq PO ONETIME ONE Stop: 08/09/17 18:17 Last Admin: 08/09/17 18:30 Dose: 40 meq Potassium Chloride (Klor-Con M20) 40 meq PO ONETIME ONE Stop: 08/10/17 10:48 - Exam General: Alert, Oriented, Cooperative Neck: Trachea Midline Lungs: Normal Respiratory Effort Neurological: No New Focal Deficit, Normal Speech - Problem List & Annotations (1) Hypotension SNOMED Code(s): 24229689 Code(s): I95.9 - HYPOTENSION, UNSPECIFIED Status: Acute Current Visit: Yes Qualifiers: Hypotension type: unspecified hypotension type Qualified Code(s): I95.9 - Hypotension, unspecified (2) Lactic acidosis SNOMED Code(s): 10605436 Code(s): E87.2 - ACIDOSIS Status: Acute Current Visit: Yes (3) Leukocytosis SNOMED Code(s): 589635999 Code(s): D72.829 - ELEVATED WHITE BLOOD CELL COUNT, UNSPECIFIED Status: Acute Current Visit: Yes Qualifiers: Leukocytosis type: unspecified Qualified Code(s): D72.829 - Elevated white blood cell count, unspecified (4) Diabetes mellitus SNOMED Code(s): 25692605 Code(s): E11.9 - TYPE 2 DIABETES MELLITUS WITHOUT COMPLICATIONS Status: Acute Current Visit: No (5) History of chronic hypertension SNOMED Code(s): 451074649 Code(s): Z86.79 - PERSONAL HISTORY OF OTHER DISEASES OF THE CIRCULATORY SYSTEM Status: Acute Current Visit: No (6) Chronic pain SNOMED Code(s): 07035204 Code(s): G89.29 - OTHER CHRONIC PAIN Status: Acute Current Visit: Yes (7) Hypokalemia SNOMED Code(s): 17288442 Code(s): E87.6 - HYPOKALEMIA Status: Acute Current Visit: Yes - Problem List Review Problem List Initiated/Reviewed/Updated: Yes - My Orders Last 24 Hours: My Active Orders 08/09/17 18:36 Telemetry Monitoring [Cardiac Monitoring] [RC] Q8H 08/09/17 19:33 Oxygen Therapy [RC] PRN Vital Signs [RC] Q4H Resuscitation Status Routine 08/09/17 19:34 Antiembolic Devices [RC] PER UNIT ROUTINE Sequential Compression Device [OM.PC] Per Unit Routine 08/09/17 19:35 Blood Glucose Check, Bedside [RC] QIDACANDBED Oxygen Therapy [RC] PRN VTE/DVT Education [RC] PER UNIT ROUTINE Acetaminophen [Tylenol] 650 mg PO Q4H PRN Ondansetron [Zofran ODT] 4 mg PO Q4H PRN Temazepam [Restoril] 15 mg PO BEDTIME PRN 08/09/17 19:39 ClonazePAM [KlonoPIN] 1 mg PO TID PRN 08/09/17 20:26 Acetaminophen/HYDROcodone [[place] 325-5 MG] 1 tab PO Q6HR PRN 08/09/17 20:29 Fecal Occult Blood Collection [RC] ASDIRECTED 08/09/17 21:00 Insulin Aspart [NovoLOG] See Protocol SUBCUT ACBED Pravastatin [Pravachol] 40 mg PO BEDTIME 08/09/17 Dinner [place] Diet [DIET] 08/10/17 01:00 Piperacillin/Tazobactam [Piperacil-Tazobact] 3.375 gm Sodium Chloride 0.9% [ Normal Saline] 50 ml IV Q6H 08/10/17 09:00 Aspirin [Halfprin] 81 mg PO DAILY Escitalopram [Lexapro] 20 mg PO DAILY 08/10/17 18:00 Potassium Chloride [Klor-Con M20] 40 meq PO ONETIME ONE 08/11/17 05:11 CBC WITH AUTO DIFF [HEME] AM COMPREHENSIVE METABOLIC PN,CMP [CHEM] AM - Plan Plan:: admit see orders hold antihypertensives antibiotics pending cultures hold metformin Damian Gomez MD 08/10/2017 will continue to monitor in the hospital consider adding antihypertensives when her blood pressure increases K replacement monitor blood sugars hold antibiotics now. possible discharge tomorrow Damian Gomez MD
[2017-08-10] MEDS: ClonazePAM 1 MG Tab PO PRN (12:56)
[2017-08-10] MEDS: Cetirizine 10 MG Tab PO PRN (19:51)
[2017-08-10] MEDS ORDERED: Magnesium Sulfate/Water 4 GM in Premix Bag 1 BAG IV ONE (19:57)
[2017-08-10] MEDS: Pravastatin 40 MG Tab PO SCH (20:42)
[2017-08-11 06:25] LABS: CHLORIDE,CL 105 mmol/L (98-110); SODIUM,NA 140 mmol/L (136-146)
[2017-08-11] MEDS: Insulin Aspart 100 Units/ML 3 ML Pen SUBCUT SCH ×4 (07:55→21:09)
[2017-08-11] MEDS: Escitalopram 10 MG Tab PO SCH (08:03)
[2017-08-11] MEDS: Aspirin 81 MG Tab.EC PO SCH (08:03)
[2017-08-11] MEDS ORDERED: Potassium Chloride 20 MEQ Tab.ER PO ONE (08:08)
[2017-08-11] MEDS ORDERED: Magnesium Sulfate/Water 2 GM in Premix Bag 1 BAG IV ONE (08:08)
[2017-08-11] MEDS: Acetaminophen/HYDROcodone 325-5 MG Tab PO PRN ×2 (08:32→21:14)
--- NOTE | 2017-08-11 10:23 | PCM.PN ---
- General Info Date of Service: 08/11/17 Admission Dx/Problem (Free Text): Hypotension Subjective Update: Patient complains of a mild headache this morning. She did have a severe headache when she was admitted but states that this is significantly improved. Patient is hesitant about discharge today. She wants to see Dr. Da Silva, sap abap programmer , prior to discharge to discuss her blood pressure medications. She is ambulating, tolerating oral intake and voiding appropriately. Her blood pressure this morning is 163/78. Her antihypertensive medications have been held throughout admission secondary to hypotension. Functional Status: Reports: Tolerating Diet, Ambulating, Urinating - Review of Systems General: Reports: No Symptoms HEENT: Reports: Headaches Pulmonary: Reports: No Symptoms Cardiovascular: Reports: No Symptoms Gastrointestinal: Reports: No Symptoms Genitourinary: Reports: No Symptoms Musculoskeletal: Reports: No Symptoms Skin: Reports: No Symptoms Neurological: Reports: No Symptoms Psychiatric: Reports: No Symptoms - Patient Data Vitals - Most Recent: Last Vital Signs Temp 97.5 F 08/11/17 08:00 Pulse 94 08/11/17 08:00 Resp 15 08/11/17 08:00 BP 188/75 H 08/11/17 08:00 Pulse Ox 95 08/11/17 08:00 Weight - Most Recent: 177 lb 7.554 oz I&O - Last 24 Hours: Intake & Output 08/10/17 08/11/17 08/11/17 22:59 06:59 14:59 Intake Total 600 50 Output Total 2650 Balance -2050 50 Lab Results Last 24 Hours: Laboratory Results - last 24 hr 08/10/17 08/10/17 08/10/17 Range/Units 11:27 16:29 20:55 WBC (4.0-11.0) K/uL RBC (4.30-5.90) M/uL Hgb (12.0-16.0) g/dL Hct (36.0-46.0) % MCV (80.0-98.0) fL MCH (27.0-32.0) pg MCHC (31.0-37.0) g/dL RDW Std Deviation (28.0-62.0) fl RDW Coeff of Bobib (11.0-15.0) % Plt Count (150-400) K/uL MPV (7.40-12.00) fL Neut % (Auto) (48.0-80.0) % Lymph % (Auto) (16.0-40.0) % [place] % (Auto) (0.0-15.0) % Eos % (Auto) (0.0-7.0) % Baso % (Auto) (0.0-1.5) % Neut # (Auto) (1.4-5.7) K/uL Lymph # (Auto) (0.6-2.4) K/uL [place] # (Auto) (0.0-0.8) K/uL Eos # (Auto) (0.0-0.7) K/uL Baso # (Auto) (0.0-0.1) K/uL Nucleated RBC % /100WBC Nucleated RBCs # K/uL Sodium (136-146) mmol/L Potassium (3.5-5.1) mmol/L Chloride (98-110) mmol/L Carbon Dioxide (21-31) mmol/L BUN (6.0-23.0) mg/dL Creatinine (0.6-1.5) mg/dL Est Cr Clr Drug Dosing mL/min Estimated GFR (MDRD) ml/min Glucose (60-110) mg/dL POC Glucose 99 129 H 91 (60-110) mg/dL Calcium (8.8-10.8) mg/dL Magnesium (1.5-2.3) mEq/L Total Bilirubin (0.1-1.5) mg/dL AST (5-40) IU/L ALT (8-54) IU/L Alkaline Phosphatase (40-150) Total Protein (6.0-8.0) g/dL Albumin (3.5-5.0) g/dL Globulin (2.0-3.5) g/dL Albumin/Globulin Ratio (1.3-2.8) 08/11/17 08/11/17 08/11/17 Range/Units 05:35 05:35 07:39 WBC 5.49 (4.0-11.0) K/uL RBC 3.72 L (4.30-5.90) M/uL Hgb 10.8 L (12.0-16.0) g/dL Hct 33.2 L (36.0-46.0) % MCV 89.2 (80.0-98.0) fL MCH 29.0 (27.0-32.0) pg MCHC 32.5 (31.0-37.0) g/dL RDW Std Deviation 46.9 (28.0-62.0) fl RDW Coeff of Bobbi 14 (11.0-15.0) % Plt Count 286 (150-400) K/uL MPV 8.90 (7.40-12.00) fL Neut % (Auto) 52.3 (48.0-80.0) % Lymph % (Auto) 30.2 (16.0-40.0) % [place] % (Auto) 10.4 (0.0-15.0) % Eos % (Auto) 6.2 (0.0-7.0) % Baso % (Auto) 0.9 (0.0-1.5) % Neut # (Auto) 2.9 (1.4-5.7) K/uL Lymph # (Auto) 1.7 (0.6-2.4) K/uL [place] # (Auto) 0.6 (0.0-0.8) K/uL Eos # (Auto) 0.3 (0.0-0.7) K/uL Baso # (Auto) 0.1 (0.0-0.1) K/uL Nucleated RBC % 0.0 /100WBC Nucleated RBCs # 0 K/uL Sodium 140 (136-146) mmol/L Potassium 3.2 L (3.5-5.1) mmol/L Chloride 105 (98-110) mmol/L Carbon Dioxide 24 (21-31) mmol/L BUN 8 (6.0-23.0) mg/dL Creatinine 0.6 (0.6-1.5) mg/dL Est Cr Clr Drug Dosing 100.60 mL/min Estimated GFR (MDRD) > 60.0 ml/min Glucose 117 H (60-110) mg/dL POC Glucose 102 (60-110) mg/dL Calcium 8.9 (8.8-10.8) mg/dL Magnesium 1.4 L (1.5-2.3) mEq/L Total Bilirubin 0.5 (0.1-1.5) mg/dL AST 26 (5-40) IU/L ALT 32 (8-54) IU/L Alkaline Phosphatase 99 (40-150) Total Protein 6.4 (6.0-8.0) g/dL Albumin 3.8 (3.5-5.0) g/dL Globulin 2.6 (2.0-3.5) g/dL Albumin/Globulin Ratio 1.5 (1.3-2.8) Med Orders - Current: Current Medications Acetaminophen (Tylenol) 650 mg PO Q4H PRN PRN Reason: Pain (Mild 1-3)/fever Last Admin: 08/10/17 09:35 Dose: 650 mg Hydrocodone Bitart/Acetaminophen ([place] 325-5 Mg) 1 tab PO Q6HR PRN PRN Reason: Pain Last Admin: 08/11/17 08:32 Dose: 1 tab Aspirin (Halfprin) 81 mg PO DAILY [facility] Last Admin: 08/11/17 08:03 Dose: 81 mg Cetirizine HCl (Zyrtec) 10 mg PO DAILY PRN PRN Reason: Congestion Last Admin: 08/10/17 19:51 Dose: 10 mg Clonazepam (Klonopin) 1 mg PO TID PRN PRN Reason: Anxiety Last Admin: 08/10/17 12:56 Dose: 1 mg Escitalopram Oxalate (Lexapro) 20 mg PO DAILY [facility] Last Admin: 08/11/17 08:03 Dose: 20 mg Insulin Aspart (Novolog) 0 unit SUBCUT ACBED [facility] PRN Reason: Protocol Last Admin: 08/11/17 07:55 Dose: Not Given Ondansetron HCl (Zofran Odt) 4 mg PO Q4H PRN PRN Reason: nausea, able to take PO Pravastatin Sodium (Pravachol) 40 mg PO BEDTIME [facility] Last Admin: 08/10/17 20:42 Dose: 40 mg Sodium Chloride (Saline Flush) 10 ml FLUSH ASDIRECTED PRN PRN Reason: Keep Vein Open Last Admin: 08/09/17 15:49 Dose: 10 ml Sodium Chloride (Saline Flush) 2.5 ml FLUSH ASDIRECTED PRN PRN Reason: Keep Vein Open Last Admin: 08/09/17 15:49 Dose: 2.5 ml Temazepam (Restoril) 15 mg PO BEDTIME PRN PRN Reason: Sleep Discontinued Medications Sodium Chloride (Normal Saline) 1,000 mls @ 999 mls/hr IV STAT ONE Stop: 08/09/17 16:34 Last Admin: 08/09/17 15:48 Dose: 999 mls/hr Sodium Chloride (Normal Saline) 1,000 mls @ 150 mls/hr IV ASDIRECTED [facility] Last Admin: 08/10/17 13:21 Dose: 150 mls/hr Piperacillin Sod/Tazobactam (Sod 3.375 gm/ Sodium Chloride) 50 mls @ 100 mls/ hr IV ONETIME ONE Stop: 08/09/17 18:53 Last Admin: 08/09/17 18:30 Dose: 100 mls/hr Piperacillin Sod/Tazobactam (Sod 3.375 gm/ Sodium Chloride) 50 mls @ 100 mls/ hr IV Q6H [facility] Last Admin: 08/10/17 06:01 Dose: 100 mls/hr Magnesium Sulfate 4 gm/ Premix 100 mls @ 50 mls/hr IV ONETIME ONE Stop: 08/10/17 21:56 Last Admin: 08/10/17 20:45 Dose: 50 mls/hr Magnesium Sulfate 2 gm/ Premix 50 mls @ 50 mls/hr IV ONETIME ONE Stop: 08/11/17 09:07 Last Admin: 08/11/17 08:31 Dose: 50 mls/hr Ondansetron HCl (Zofran) 4 mg IVPUSH ONETIME ONE Stop: 08/09/17 15:40 Last Admin: 08/09/17 15:49 Dose: 4 mg Potassium Chloride (Klor-Con M20) 40 meq PO ONETIME ONE Stop: 08/09/17 18:17 Last Admin: 08/09/17 18:30 Dose: 40 meq Potassium Chloride (Klor-Con M20) 40 meq PO ONETIME ONE Stop: 08/10/17 10:48 Last Admin: 08/10/17 10:58 Dose: 40 meq Potassium Chloride (Klor-Con M20) 40 meq PO ONETIME ONE Stop: 08/10/17 18:01 Last Admin: 08/10/17 18:21 Dose: 40 meq Potassium Chloride (Klor-Con M20) 40 meq PO ONETIME ONE Stop: 08/11/17 08:09 Last Admin: 08/11/17 08:33 Dose: 40 meq Comments:: Patient is sitting in the bedside chair and does not appear to be in any acute distress. - Exam Quality Assessment: DVT Prophylaxis (SCDs) General: Alert, Oriented, Cooperative, No Acute Distress Lungs: Clear to Auscultation, Normal Respiratory Effort Cardiovascular: Regular Rate, Regular Rhythm Extremities: Normal Inspection, Non-Tender, No Pedal Edema, Normal Capillary Refill Peripheral Pulses: 2+: Radial (L), Radial (R), Posterior Tibial (L), Posterior Tibial (R) Skin: Warm, Dry, Intact Neurological: No New Focal Deficit Psy/Mental Status: Alert, Normal Affect, Normal Mood - Problem List & Annotations (1) Hypotension SNOMED Code(s): 82392738 Code(s): I95.9 - HYPOTENSION, UNSPECIFIED Status: Acute Current Visit: Yes Qualifiers: Hypotension type: unspecified hypotension type Qualified Code(s): I95.9 - Hypotension, unspecified - Problem List Review Problem List Initiated/Reviewed/Updated: Yes - My Orders Last 24 Hours: My Active Orders 08/11/17 09:04 Communication Order [RC] ROUTINE - Plan Plan:: 56-year-old female that was admitted with hypotension. #1. Hypotension: -Blood pressure this morning is 163/78. All antihypertensive medications have been held since admission secondary to her hypotension. Patient is on multiple antihypertensive medications. Will restart Norvasc this morning which was recently started by Dr. Da Silva, sap abap programmer. -Patient is hesitant about discharge until she sees Dr. Da Silva. I will place an official consult and have him see her tomorrow morning. Will follow his recommendations regarding antihypertensive medications. #2. Diabetes: -Continue NovoLog. Holding patient's home medication of metformin. -Continue Accu-Cheks. #3. Hypokalemia, hypomagnesemia: -Potassium and magnesium replaced this morning. DVT prophylaxis: SCDs. Will add Lovenox Disposition: Potential discharge tomorrow after seeing Dr. Gonzáles
[2017-08-11] MEDS ORDERED: Enoxaparin 40 MG/0.4 ML Syringe SUBCUT SCH (10:30)
[2017-08-11] MEDS: amLODIPine 5 MG Tab PO SCH (11:21)
[2017-08-11] MEDS: ClonazePAM 1 MG Tab PO PRN (13:44)
[2017-08-11] MEDS: Acetaminophen 325 MG Tab PO PRN (13:46)
[2017-08-11] MEDS ORDERED: Labetalol 100 MG/20 ML MDV IVPUSH ONE (16:18)
[2017-08-11] MEDS: Pravastatin 40 MG Tab PO SCH (21:09)
[2017-08-12 06:32] LABS: CHLORIDE,CL 103 mmol/L (98-110); SODIUM,NA 140 mmol/L (136-146)
[2017-08-12] MEDS: Insulin Aspart 100 Units/ML 3 ML Pen SUBCUT SCH ×2 (06:51→11:22)
[2017-08-12] MEDS: Acetaminophen 325 MG Tab PO PRN (07:21)
[2017-08-12] MEDS: Aspirin 81 MG Tab.EC PO SCH (08:15)
[2017-08-12] MEDS: Escitalopram 10 MG Tab PO SCH (08:15)
[2017-08-12] MEDS: amLODIPine 5 MG Tab PO SCH (08:16)
[2017-08-12] MEDS: Cetirizine 10 MG Tab PO PRN (08:21)
[2017-08-12 08:38] VITALS: BP 175/81
[2017-08-12] MEDS ORDERED: Magnesium Oxide 400 MG Tab PO ONE (09:06)
[2017-08-12] MEDS ORDERED: Potassium Chloride 20 MEQ Tab.ER PO ONE (09:06)
--- NOTE | 2017-08-12 10:16 | CR ---
EXAM DATE: 08/09/17 PATIENT'S AGE: 56 Patient: ROBERT DARLING Facility: [place], [place] Site . Site : 1960 Study: XRay Chest [id number]/2017 3:47:59 PM Ordering Physician: Amarjit Benson Final Report: HISTORY: Pain, shortness of breath. FINDINGS: AP portable chest radiograph is compared to 06 August 2017 and 04 June 2017. The cardiac silhouette is normal. Pulmonary vasculature is free of cephalization. No lobar consolidation or pleural effusion is seen. IMPRESSION: No acute cardiopulmonary disease. Dictated by Annel Cain MD @ 08/09/2017 3:58:33 PM Dictated by: Annel Cain MD @ 08/09/2017 16:04:44 (Electronic Signature) Report Signed by Proxy. [facility]ITAL[facility]
--- NOTE | 2017-08-12 10:17 | CT ---
EXAM DATE: 08/09/17 PATIENT'S AGE: 56 Patient: ROBERT DARLING Facility: [place], [place] Site . Site : 1960 Study: CT Head wo cont [id number]/10/2017 4:30:19 PM Ordering Physician: Amarjit Benson Final Report: INDICATION: generalized weakness and dizziness for [address] HEAD WITHOUT CONTRAST TECHNIQUE: Multiple axial CT images were performed through the head without intravenous contrast administration. COMPARISON: No previous studies are currently available for comparison. FINDINGS: No acute intracranial hemorrhage is identified. No extra-axial collections are evident and there is no mass effect or midline shift. Ventricles are normal in size and configuration. Brain parenchyma appears normal with unremarkable james-white differentiation. Osseous structures are within normal limits and no fractures are seen. Included portions of the paranasal sinuses and mastoid air cells are normally aerated. IMPRESSION: Normal non-contrast head CT. DEMARCO HAMILTON MD [employer] Dictated by: Shaggy Hamilton MD @ 08/09/2017 16:43:06 (Electronic Signature) Report Signed by Proxy. [facility]
--- NOTE | 2017-08-12 11:07 | PCM.DCSUM1 ---
Discharge Summary - Hospital Course Free Text/Narrative:: Admission Date: 08/09/17 Discharge Date: 08/12/17 Admission diagnosis: #1. hypotension #2. leukocytosis #3. elevated lactic acid #4. History of HTN, T2DM Discharge diagnoses: #1. Hypotension-resolved #2. Leukocytosis resolved #3. Elevated lactic acid resolved #4. History of hypertension, type 2 diabetes Hospital course: This is a 56-year-old female with a history of hypertension that presented to the emergency room with weakness and lightheadedness found to have a systolic blood pressure of 70 by EMS. On routine labs in the ER, she was found to have leukocytosis and lactic acidosis. She was given a one-time dose of Levaquin. Repeat lab checked showed normal values. Patient then admitted for those reasons and her hypotension. All her blood pressure medications were held. Repeat routine blood pressure check indicated that the patient back to her hypertensive normal state. As per the patient, she was started on a new medication for her blood pressure in the past week which may have caused this. She on arrival takes metoprolol, amlodipine, hydrochlorothiazide, lisinopril. She says that she met with cardiology last week. Cardiology was then consulted while in the hospital to blood pressure medication management, who recommended that we stop the hydrochlorothiazide and continue the other 3 medications. At the time of discharge, the patient was advised to check her blood pressure daily. She told me that she has a machine at home and she is able to do this. However, she tells me that she's going to [place] next weekend and [place] thereafter for the next few weeks. She tells me that she has a primary care provider in [place] who she will follow up with. Follow-up: Follow-up with primary care provider Dr. Lyn within this week. Medications: Stop hydrochlorothiazide 12.5 mg, stop meloxicam 15 mg Return precautions: Patient is advised to return to seek medical attention if she experiences lightheadedness, syncope, dizziness, chest pain or palpitations. - Discharge Data Discharge Date: 08/12/17 Discharge Disposition: Home, Self-Care 01 Condition: Fair - Patient Summary/Data Consults: Consultations 08/11/17 11:52 Consult to Physician [CONS] Routine - Patient Instructions Diet: Low Sodium Driving: May Drive Today Showering/Bathing: May Shower Notify Provider of: Fever, Swelling and Redness, Nausea and/or Vomiting Other/Special Instructions: Daily blood pressure checks. - Discharge Plan Home Medications: Home Meds Aspirin [Ecotrin] 81 mg PO DAILY 08/09/17 [History] ClonazePAM [KlonoPIN] 1 mg PO DAILY 08/09/17 [History] Escitalopram [Lexapro] 20 mg PO DAILY 08/09/17 [History] Hydrocodone/Acetaminophen [Hydrocodon-Acetaminophen 5-325] 1 each PO Q6HR PRN [History] Labetalol HCl [Labetalol] 100 mg PO BID 08/09/17 [History] Lisinopril [Zestril] 40 mg PO DAILY 08/09/17 [History] Potassium Chloride 10 mg PO DAILY 08/09/17 [History] Pravastatin Sodium [Pravastatin (Pravachol)] 40 mg PO BEDTIME 08/09/17 [History] amLODIPine [Norvasc] 10 mg PO DAILY 08/09/17 [History] metFORMIN [Glucophage XR] 500 mg PO BID 08/09/17 [History] Patient Handouts: Hypotension, [id number], Hypokalemia Referrals: Tyra Betancourt MD [Physician] - Marshall Vargas MD [Physician] - - Discharge Summary/Plan Comment DC Time >30 min.: No Discharge Summary/Plan Comment: Admission Date: 08/09/17 Discharge Date: 08/12/17 Admission diagnosis: #1. hypotension #2. leukocytosis #3. elevated lactic acid #4. History of HTN, T2DM Discharge diagnoses: #1. Hypotension-resolved #2. Leukocytosis resolved #3. Elevated lactic acid resolved #4. History of hypertension, type 2 diabetes Hospital course: This is a 56-year-old female with a history of hypertension that presented to the emergency room with weakness and lightheadedness found to have a systolic blood pressure of 70 by EMS. On routine labs in the ER, she was found to have leukocytosis and lactic acidosis. She was given a one-time dose of Levaquin. Repeat lab checked showed normal values. Patient then admitted for those reasons and her hypotension. All her blood pressure medications were held. Repeat routine blood pressure check indicated that the patient back to her hypertensive normal state. As per the patient, she was started on a new medication for her blood pressure in the past week which may have caused this. She on arrival takes metoprolol, amlodipine, hydrochlorothiazide, lisinopril. She says that she met with cardiology last week. Cardiology was then consulted while in the hospital to blood pressure medication management, who recommended that we stop the hydrochlorothiazide and continue the other 3 medications. At the time of discharge, the patient was advised to check her blood pressure daily. She told me that she has a machine at home and she is able to do this. However, she tells me that she's going to [place] next weekend and [place] thereafter for the next few weeks. She tells me that she has a primary care provider in [place] who she will follow up with. Follow-up: Follow-up with primary care provider Dr. Lyn within this week. Medications: Stop hydrochlorothiazide 12.5 mg, stop meloxicam 15 mg Return precautions: Patient is advised to return to seek medical attention if she experiences lightheadedness, syncope, dizziness, chest pain or palpitations. - Patient Data Vitals - Most Recent: Last Vital Signs Temp 36.6 C 08/12/17 08:00 Pulse 88 08/12/17 08:00 Resp 16 08/12/17 08:00 BP 179/92 H 08/12/17 08:16 Pulse Ox 96 08/12/17 08:00 Weight - Most Recent: 80.5 kg I&O - Last 24 hours: Intake & Output 08/11/17 08/12/17 08/12/17 22:59 06:59 14:59 Intake Total 1450 1200 Output Total 1750 2500 Balance -300 -1300 Lab Results - Last 24 hrs: Laboratory Results - last 24 hr 08/11/17 08/11/17 08/11/17 Range/Units 11:18 16:02 21:08 WBC (4.0-11.0) K/uL RBC (4.30-5.90) M/uL Hgb (12.0-16.0) g/dL Hct (36.0-46.0) % MCV (80.0-98.0) fL MCH (27.0-32.0) pg MCHC (31.0-37.0) g/dL RDW Std Deviation (28.0-62.0) fl RDW Coeff of Bobbi (11.0-15.0) % Plt Count (150-400) K/uL MPV (7.40-12.00) fL Neut % (Auto) (48.0-80.0) % Lymph % (Auto) (16.0-40.0) % [place] % (Auto) (0.0-15.0) % Eos % (Auto) (0.0-7.0) % Baso % (Auto) (0.0-1.5) % Neut # (Auto) (1.4-5.7) K/uL Lymph # (Auto) (0.6-2.4) K/uL [place] # (Auto) (0.0-0.8) K/uL Eos # (Auto) (0.0-0.7) K/uL Baso # (Auto) (0.0-0.1) K/uL Nucleated RBC % /100WBC Nucleated RBCs # K/uL Sodium (136-146) mmol/L Potassium (3.5-5.1) mmol/L Chloride (98-110) mmol/L Carbon Dioxide (21-31) mmol/L BUN (6.0-23.0) mg/dL Creatinine (0.6-1.5) mg/dL Est Cr Clr Drug Dosing mL/min Estimated GFR (MDRD) ml/min Glucose (60-110) mg/dL POC Glucose 105 139 H 98 (60-110) mg/dL Calcium (8.8-10.8) mg/dL Magnesium (1.5-2.3) mEq/L 08/12/17 08/12/17 08/12/17 Range/Units 05:20 05:20 06:14 WBC 5.79 (4.0-11.0) K/uL RBC 3.99 L (4.30-5.90) M/uL Hgb 11.6 L (12.0-16.0) g/dL Hct 35.7 L (36.0-46.0) % MCV 89.5 (80.0-98.0) fL MCH 29.1 (27.0-32.0) pg MCHC 32.5 (31.0-37.0) g/dL RDW Std Deviation 46.3 (28.0-62.0) fl RDW Coeff of Bobbi 14 (11.0-15.0) % Plt Count 295 (150-400) K/uL MPV 9.00 (7.40-12.00) fL Neut % (Auto) 53.2 (48.0-80.0) % Lymph % (Auto) 28.5 (16.0-40.0) % [place] % (Auto) 12.4 (0.0-15.0) % Eos % (Auto) 5.4 (0.0-7.0) % Baso % (Auto) 0.5 (0.0-1.5) % Neut # (Auto) 3.1 (1.4-5.7) K/uL Lymph # (Auto) 1.7 (0.6-2.4) K/uL [place] # (Auto) 0.7 (0.0-0.8) K/uL Eos # (Auto) 0.3 (0.0-0.7) K/uL Baso # (Auto) 0.0 (0.0-0.1) K/uL Nucleated RBC % 0.0 /100WBC Nucleated RBCs # 0 K/uL Sodium 140 (136-146) mmol/L Potassium 3.4 L (3.5-5.1) mmol/L Chloride 103 (98-110) mmol/L Carbon Dioxide 24 (21-31) mmol/L BUN 8 (6.0-23.0) mg/dL Creatinine 0.6 (0.6-1.5) mg/dL Est Cr Clr Drug Dosing 100.60 mL/min Estimated GFR (MDRD) > 60.0 ml/min Glucose 115 H (60-110) mg/dL POC Glucose 118 H (60-110) mg/dL Calcium 9.1 (8.8-10.8) mg/dL Magnesium 1.3 L (1.5-2.3) mEq/L Med Orders - Current: Current Medications Acetaminophen (Tylenol) 650 mg PO Q4H PRN PRN Reason: Pain (Mild 1-3)/fever Last Admin: 08/12/17 07:21 Dose: 650 mg Hydrocodone Bitart/Acetaminophen ([place] 325-5 Mg) 1 tab PO Q6HR PRN PRN Reason: Pain Last Admin: 08/11/17 21:14 Dose: 1 tab Amlodipine Besylate (Norvasc) 5 mg PO DAILY [facility] Last Admin: 08/12/17 08:16 Dose: 5 mg Aspirin (Halfprin) 81 mg PO DAILY [facility] Last Admin: 08/12/17 08:15 Dose: 81 mg Cetirizine HCl (Zyrtec) 10 mg PO DAILY PRN PRN Reason: Congestion Last Admin: 08/12/17 08:21 Dose: 10 mg Clonazepam (Klonopin) 1 mg PO TID PRN PRN Reason: Anxiety Last Admin: 08/11/17 13:44 Dose: 1 mg Escitalopram Oxalate (Lexapro) 20 mg PO DAILY [facility] Last Admin: 08/12/17 08:15 Dose: 20 mg Insulin Aspart (Novolog) 0 unit SUBCUT ACBED [facility] PRN Reason: Protocol Last Admin: 08/12/17 06:51 Dose: Not Given Ondansetron HCl (Zofran Odt) 4 mg PO Q4H PRN PRN Reason: nausea, able to take PO Pravastatin Sodium (Pravachol) 40 mg PO BEDTIME [facility] Last Admin: 08/11/17 21:09 Dose: 40 mg Sodium Chloride (Saline Flush) 10 ml FLUSH ASDIRECTED PRN PRN Reason: Keep Vein Open Last Admin: 08/09/17 15:49 Dose: 10 ml Sodium Chloride (Saline Flush) 2.5 ml FLUSH ASDIRECTED PRN PRN Reason: Keep Vein Open Last Admin: 08/09/17 15:49 Dose: 2.5 ml Temazepam (Restoril) 15 mg PO BEDTIME PRN PRN Reason: Sleep Discontinued Medications Enoxaparin Sodium (Lovenox) 40 mg SUBCUT Q24H [facility] Last Admin: 08/11/17 12:24 Dose: Not Given Sodium Chloride (Normal Saline) 1,000 mls @ 999 mls/hr IV STAT ONE Stop: 08/09/17 16:34 Last Admin: 08/09/17 15:48 Dose: 999 mls/hr Sodium Chloride (Normal Saline) 1,000 mls @ 150 mls/hr IV ASDIRECTED [facility] Last Admin: 08/10/17 13:21 Dose: 150 mls/hr Piperacillin Sod/Tazobactam (Sod 3.375 gm/ Sodium Chloride) 50 mls @ 100 mls/ hr IV ONETIME ONE Stop: 08/09/17 18:53 Last Admin: 08/09/17 18:30 Dose: 100 mls/hr Piperacillin Sod/Tazobactam (Sod 3.375 gm/ Sodium Chloride) 50 mls @ 100 mls/ hr IV Q6H [facility] Last Admin: 08/10/17 06:01 Dose: 100 mls/hr Magnesium Sulfate 4 gm/ Premix 100 mls @ 50 mls/hr IV ONETIME ONE Stop: 08/10/17 21:56 Last Admin: 08/10/17 20:45 Dose: 50 mls/hr Magnesium Sulfate 2 gm/ Premix 50 mls @ 50 mls/hr IV ONETIME ONE Stop: 08/11/17 09:07 Last Admin: 08/11/17 08:31 Dose: 50 mls/hr Labetalol HCl (Normodyne) 20 mg IVPUSH ONETIME ONE PRN Reason: Protocol Stop: 08/11/17 16:19 Last Admin: 08/11/17 16:38 Dose: 20 mg Magnesium Oxide (Magnesium Oxide) 400 mg PO ONETIME ONE Stop: 08/12/17 09:07 Last Admin: 08/12/17 09:58 Dose: 400 mg Ondansetron HCl (Zofran) 4 mg IVPUSH ONETIME ONE Stop: 08/09/17 15:40 Last Admin: 08/09/17 15:49 Dose: 4 mg Potassium Chloride (Klor-Con M20) 40 meq PO ONETIME ONE Stop: 08/09/17 18:17 Last Admin: 08/09/17 18:30 Dose: 40 meq Potassium Chloride (Klor-Con M20) 40 meq PO ONETIME ONE Stop: 08/10/17 10:48 Last Admin: 08/10/17 10:58 Dose: 40 meq Potassium Chloride (Klor-Con M20) 40 meq PO ONETIME ONE Stop: 08/10/17 18:01 Last Admin: 08/10/17 18:21 Dose: 40 meq Potassium Chloride (Klor-Con M20) 40 meq PO ONETIME ONE Stop: 08/11/17 08:09 Last Admin: 08/11/17 08:33 Dose: 40 meq Potassium Chloride (Klor-Con M20) 40 meq PO ONETIME ONE Stop: 08/12/17 09:07 Last Admin: 08/12/17 09:58 Dose: 40 meq *Q Meaningful Use (DIS) - VTE *Q VTE Criteria *Q: - Stroke *Q Stroke Criteria *Q: - AMI *Q AMI Criteria *Q:
[2017-08-12] MEDS: ClonazePAM 1 MG Tab PO PRN (11:34)
[2017-08-12] MEDS: Acetaminophen/HYDROcodone 325-5 MG Tab PO PRN (11:34)
== END 2017-08-12 12:21 | disposition home or self-care (01) ==
LOC: MW.ED 15:20 → MW.MS 18:29
PROVIDERS: ADMIT Family Medicine; ATTEND Family Medicine
DX: I95.9 Hypotension, unspecified (principal); D72.829 Elevated white blood cell count, unspecified; R74.0 Nonspecific elevation of levels of transaminase and lactic acid dehydrogenase [LDH]; I10 Essential (primary) hypertension; E11.9 Type 2 diabetes mellitus without complications; E78.00 Pure hypercholesterolemia, unspecified; K21.9 Gastro-esophageal reflux disease without esophagitis; F41.9 Anxiety disorder, unspecified; F32.9 Major depressive disorder, single episode, unspecified; Z79.82 Long term (current) use of aspirin; Z79.84 Long term (current) use of oral hypoglycemic drugs; Z79.899 Other long term (current) drug therapy; Z88.2 Allergy status to sulfonamides; Z88.8 Allergy status to other drugs, medicaments and biological substances; Z91.030 Bee allergy status; Z91.09 Other allergy status, other than to drugs and biological substances; Z90.710 Acquired absence of both cervix and uterus; Z96.652 Presence of left artificial knee joint
CPT/HCPCS: 36415; 70450; 71010; 80048; 80053; 81001; 82150; 82272; 82962; 83605; 83690; 83735; 84484; 85025; 87040; 87086; 93005; 96361; 96365; 96367; 96375; 99285; A9270; G0378; J2405; J2543; J3475; J7040; J7050; 96374; 99284